=== PATIENT | male | born 1970 | race Caucasian/White ===

== ENCOUNTER → 2016-09-21 | Outpatient (CLI) | payer MEDICARE, OTHER ==
[~2016-09-21] MED LIST: COUM3TAB PO; ECOT81TA2 PO; FENO54TA PO; HYDR-3129 PO; IOHEXOL 350 MG/ML 10 ML VIAL (for RAD DIAG) IV ONE; LOVA1TAB47 PO; PRIN10TA PO; SERT-129 PO; VENTAER INH
--- NOTE | 2016-09-21 15:31 | RADRPT ---
EXAM DATE/TIME: 09/21/2016 14:48 [facility] COMPARISON: CTA BRAIN W 3D RECON, September 28, 2014, 22:32. CTA CAROTID ARTERIES W 3D RECON, September 28, 2014, 22:32. INDICATIONS : Thrombosis. IV CONTRAST: 75 cc Omnipaque 350 (iohexol) IV RADIATION DOSE: 26.25 CTDIvol (mGy) MEDICAL HISTORY : Cardiovascular disease. Hypertension. SURGICAL HISTORY : Tonsillectomy. CABGTympanostomy. ENCOUNTER: Initial ACUITY: 1 week PAIN SCALE: 0/10 LOCATION: cranial TECHNIQUE: Volumetric scanning was performed using a multirow detector CT scanner. The data was post processed with a variety of visualization algorithms including full-volume maximum intensity projection, multip lanar sliding thin-slab reformation, curved-planar reformation, and surface-rendering techniques. Us ing automated exposure control and adjustment of the mA and/or kV according to patient size, radiatio n dose was kept as low as reasonably achievable to obtain optimal diagnostic quality images. FINDINGS: No abnormality is identified within the lung apices. There is normal origin of vessels from the arch without evidence of proximal stenosis. The left vertebral artery is dominant. There are patent travel med surg rn ior communicating arteries bilaterally. Examination of the right common carotid artery demonstrates the vessel to be widely patent. There is 0-10% stenosis More distally the cervical internal carotid artery is intact. Examination of the left common carotid artery demonstrates the vessel to be widely patent. There is 0 -10% stenosis More distally the cervical internal carotid artery is intact. There is an aneurysm involving the first temporal branch arising from the middle cerebral right side measuring [address] angiography of the brain is recommended to further evaluate this as well as evalua te for other aneurysms. Percent stenosis is calculated using the diameter of the stenotic region over the diameter of the nor mal distal internal carotid artery. CONCLUSION: 1. No evidence of carotid stenosis. 2. 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 Bolus infused CT angiography of the brain is recommended for further evaluation. Randell Harvey MD Board Certified Radiologist. This report was verified electronically.
== END ==
LOC: HRAD 13:51
PROVIDERS: ATTEND Family Medicine
DX: Q28.3 Other malformations of cerebral vessels (principal)
CPT/HCPCS: 70498; Q9967

== ENCOUNTER 2017-07-16 18:25 | Inpatient (IN) | payer MEDICARE, OTHER ==
[~2017-07-16] VITALS: Ht 162.6 cm; Wt 75.9 kg
[~2017-07-16 18:25] MED LIST changes: -IOHEXOL 350 MG/ML 10 ML VIAL (for RAD DIAG) IV ONE
[2017-07-16 18:32] VITALS: BP 115/77; PULSE 77; RESP 16; O2SAT 94
[2017-07-16 18:40] VITALS: TEMP 97.7
[2017-07-16] MEDS ORDERED: SODIUM CHLOR 0.9% 1000 ML INJ 1,000 ML IV SCH (19:04)
[2017-07-16] MEDS ORDERED: PANTOPRAZOLE INJ 80 MG in SODIUM CHLORIDE 0.9% INJ 35 ML IV ONE ×2 (19:04→22:05)
--- NOTE | 2017-07-16 19:09 | PD ---
HPI Chief Complaint: GI Complaint Time Seen by Provider: 19:04 Travel History International Travel<30 days: No Contact w/Intl Traveler<30days: No Traveled to known affect area: No History of Present Illness HPI The patient is a 46-year-old male who presents to the emergency department via EMS from the half-way for coffee-ground emesis. According to EMS the patient's coffee-ground emesis starting yesterday, the patient states he started vomiting earlier today. The patient describes the vomitus dark, black, with occasional tinges of blood. The patient does have a history of coughing up blood in the past secondary to a pulmonary embolism, but is unsure if he has any history of upper GI bleed. The patient does currently taking Xarelto and aspirin for a history of CAD and previous pulmonary embolism. The patient denies any dark colored stools. The patient currently resides in a half-way secondary to history of CVA and is weak on the right side of the body as well as the left lower extremity. The patient denies any chest pain, shortness of breath, but does complain of hiccups and mild nausea. He denies any abdominal pain or significant distention. Symptoms are moderate, there are no current alleviating or exacerbating factors. PFSH Past Medical History Hx Anticoagulant Therapy: Yes (XARLETO) Arthritis: Yes (ANKLES, HIP) Asthma: Yes (Uses inhaler) Autoimmune Disease: No Anxiety: Yes Depression: Yes Heart Rhythm Problems: Yes (Heart attack in 2007) Cancer: No Cardiovascular Problems: Yes (CHF) High Cholesterol: Yes (TAKING LIPITOR) Chemotherapy: No Chest Pain: Yes Congestive Heart Failure: Yes COPD: No Cerebrovascular Accident: Yes Coronary Artery Disease: Yes Diabetes: No Diminished Hearing: Yes Endocrine: No Gastrointestinal Disorders: Yes (history of nausea and vomiting) GERD: Yes Genitourinary: No Headaches: Yes (Headache twice a week) Hepatitis: No Hiatal Hernia: Yes Hypertension: Yes Immune Disorder: No Implanted Vascular Access Dvce: Yes Kidney Stones: No Musculoskeletal: No Neurologic: Yes (Hx of TIA's) Psychiatric: Yes Reproductive: No Respiratory: Yes Immunizations Current: Yes Migraines: No Myocardial Infarction: Yes (APR 2008) Radiation Therapy: No Renal Failure: No Seizures: No Sickle Cell Disease: No Sleep Apnea: No Thyroid Disease: No Ulcer: No ?: Not Past Surgical History Abdominal Surgery: No AICD: Yes Appendectomy: Yes Arteriovenous Shunt: No Cardiac Surgery: Yes (CABG X 3 IN 2007, AICD PLACEMENT IN AUG 2008) Coronary Artery Bypass Graft: Yes (TRIPLE 04/26) Ear Surgery: Yes (tubes placed bilaterally when a child) Eye Surgery: No Genitourinary Surgery: No Insulin Pump: No Joint Replacement: Yes (LEFT HIP REPLACEMENT) Neurologic Surgery: No Oral Surgery: No Pacemaker: Yes ([facility]) Thoracic Surgery: Yes Tonsillectomy: Yes Tympanostomy Tube: Yes Other Surgery: Yes (TONSILLECTOMY) Social History Alcohol Use: No Tobacco Use: No Substance Use: No Allergies-Medications (Allergen,Severity, Reaction): Coded Allergies: No Known Allergies (Unverified , 10/01/15) Reported Meds & Prescriptions Reported Meds & Active Scripts Active Reported Zoloft (Sertraline HCl) 50 Mg Tab 75 Mg PO DAILY BRAND MEDICALLY NECESSARY Xarelto (Rivaroxaban) 20 Mg Tab 20 Mg PO DAILY Tylenol-Codeine #3 (Acetaminophen-Codeine) 300-30 mg Tab 1 Tab PO TID Tums (Calcium Carbonate (Antacid)) 500 Mg Chew 500 Mg CHEW TID PRN Milk of Magnesia Liq (Magnesium Hydroxide) 400 Mg/5 Ml Susp 30 Ml PO DAILY PRN Metamucil Powder (Psyllium Seed (with Sugar)) 575 Gm Powder 1 Pkt PO DAILY PRN Melatonin 3 Mg Tab 3 Mg PO HS Meclizine (Meclizine HCl) 25 Mg Tab 25 Mg PO TID PRN Lisinopril 10 Mg Tab 10 Mg PO DAILY Lipitor (Atorvastatin Calcium) 40 Mg Tab 40 Mg PO HS Neurontin (Gabapentin) 100 Mg Cap 100 Mg PO BID PRN Fenofibrate 54 Mg Tab 54 Mg PO DAILY Biofreeze Topical (Menthol Topical) 4 % Gel 1 Applic TOPICAL Q12HR PRN Apply to affected shoulders Ativan (Lorazepam) 0.5 Mg Tab 0.5 Mg PO BID Ecotrin Low Strength (Aspirin) 81 Mg Tabdr 81 Mg PO DAILY Review of Systems Except as stated in HPI: all other systems reviewed are Neg General / Constitutional: No: Fever HENT: No: Lightheadedness Cardiovascular: No: Chest Pain or Discomfort Respiratory: No: Shortness of Breath Gastrointestinal: Positive: Nausea, Vomiting, Hematemesis, No: Abdominal Pain, Hematochezia, Changes in Bowel Habits Neurologic: Positive: Weakness (weakness and right sided body secondary to previous CVA) Physical Exam Narrative GENERAL: Awake, alert, pleasant 46-year-old male who appears his stated age and is in no acute respiratory distress. SKIN: Focused skin assessment warm/dry. HEAD: Atraumatic. Normocephalic. EYES: Pupils equal and round. No scleral icterus. No injection or drainage. Mild lower leg on the right. ENT: No nasal bleeding or discharge. Mucous membranes pink and moist. Slightly asymmetric right nasolabial fold. NECK: Trachea midline. No JVD. CARDIOVASCULAR: Regular rate and rhythm. No murmur appreciated. Heart rate in the 80s. Well-healed sternal scar. RESPIRATORY: No accessory muscle use. Clear to auscultation. Breath sounds equal bilaterally. GASTROINTESTINAL: Abdomen soft, minimal distention, no rebound tender, guarding , rigidity. Back: Superficial stage I decubitus ulcer. Rectal exam reveals no gross blood. Guaiac negative. MUSCULOSKELETAL: Mild atrophy of the right upper extremity and right lower extremity. Limited range of motion of the right lower extremity and right upper extremity. NEUROLOGICAL: Awake and alert. Slightly asymmetric smile on the right. Limited range of motion of the right lower extremity and right upper extremity. PSYCHIATRIC: Appropriate mood and affect; insight and judgment normal. Data Data Last Documented VS Vital Signs Date Time Temp Pulse Resp B/P (MAP) Pulse Ox O2 Delivery O2 Flow Rate FiO2 07/16/17 18:40 97.7 07/16/17 18:32 77 16 115/77 (90) 94 Orders Orders Complete Blood Count With Diff (07/16/17 19:04) Comprehensive Metabolic Panel (07/16/17 19:04) Lipase (07/16/17 19:04) Prothrombin Time / Inr (Pt) (07/16/17 19:04) Act Partial Throm Time (Ptt) (07/16/17 19:04) Urinalysis - C+S If Indicated (07/16/17 19:04) Type And Screen (07/16/17 19:04) Chest, Single Ap (07/16/17 19:04) Ecg Monitoring (07/16/17 19:04) Iv Access Insert/Monitor (07/16/17 19:04) Oximetry (07/16/17 19:04) Ondansetron Inj (Zofran Inj) (07/16/17 19:15) Sodium Chlor 0.9% 1000 Ml Inj (Ns 1000 M (07/16/17 19:04) Sodium Chloride 0.9% Flush (Ns Flush) (07/16/17 19:15) Sodium Chloride 0.9... W/Pantoprazole In (07/16/17 19:04) Sodium Chloride 0.9... W/Pantoprazole In (07/16/17 19:04) Ng Gastric Tube Insert/Monitor (07/16/17 19:06) Admit Order (Ed Use Only) (07/16/17 ) Vital Signs (Adult) Q4H (07/16/17 21:01) Diet Npo (07/17/17 Breakfast) Activity Bed Rest (07/16/17 21:01) Labs Laboratory Tests Test 07/16/17 19:14 White Blood Count 8.6 TH/MM3 Red Blood Count 4.51 MIL/MM3 Hemoglobin 13.8 GM/DL Hematocrit 41.0 % Mean Corpuscular Volume 90.8 FL Mean Corpuscular Hemoglobin 30.5 PG Mean Corpuscular Hemoglobin Concent 33.6 % Red Cell Distribution Width 14.4 % Platelet Count 232 TH/MM3 Mean Platelet Volume 9.0 FL Neutrophils (%) (Auto) 68.2 % Lymphocytes (%) (Auto) 18.7 % Monocytes (%) (Auto) 7.6 % Eosinophils (%) (Auto) 4.8 % Basophils (%) (Auto) 0.7 % Neutrophils # (Auto) 5.8 TH/MM3 Lymphocytes # (Auto) 1.6 TH/MM3 Monocytes # (Auto) 0.7 TH/MM3 Eosinophils # (Auto) 0.4 TH/MM3 Basophils # (Auto) 0.1 TH/MM3 CBC Comment DIFF FINAL Differential Comment Prothrombin Time 13.6 SEC Prothromb Time International Ratio 1.2 RATIO Activated Partial Thromboplast Time 30.8 SEC Blood Urea Nitrogen 15 MG/DL Creatinine 1.31 MG/DL Random Glucose 91 MG/DL Total Protein 7.7 GM/DL Albumin 3.5 GM/DL Calcium Level 8.5 MG/DL Alkaline Phosphatase 53 U/L Aspartate Amino Transf (AST/SGOT) 37 U/L Alanine Aminotransferase (ALT/SGPT) 20 U/L Total Bilirubin 0.5 MG/DL Sodium Level 138 MEQ/L Potassium Level 4.9 MEQ/L Chloride Level 107 MEQ/L Carbon Dioxide Level 25.1 MEQ/L Anion Gap 6 MEQ/L Estimat Glomerular Filtration Rate 59 ML/MIN Lipase 69 U/L [facility] Medical Decision Making Medical Screen Exam Complete: Yes Emergency Medical Condition: Yes Medical Record Reviewed: Yes Interpretation(s) Laboratory Tests Test 07/16/17 19:14 White Blood Count 8.6 TH/MM3 Red Blood Count 4.51 MIL/MM3 Hemoglobin 13.8 GM/DL Hematocrit 41.0 % Mean Corpuscular Volume 90.8 FL Mean Corpuscular Hemoglobin 30.5 PG Mean Corpuscular Hemoglobin Concent 33.6 % Red Cell Distribution Width 14.4 % Platelet Count 232 TH/MM3 Mean Platelet Volume 9.0 FL Neutrophils (%) (Auto) 68.2 % Lymphocytes (%) (Auto) 18.7 % Monocytes (%) (Auto) 7.6 % Eosinophils (%) (Auto) 4.8 % Basophils (%) (Auto) 0.7 % Neutrophils # (Auto) 5.8 TH/MM3 Lymphocytes # (Auto) 1.6 TH/MM3 Monocytes # (Auto) 0.7 TH/MM3 Eosinophils # (Auto) 0.4 TH/MM3 Basophils # (Auto) 0.1 TH/MM3 CBC Comment DIFF FINAL Differential Comment Prothrombin Time 13.6 SEC Prothromb Time International Ratio 1.2 RATIO Activated Partial Thromboplast Time 30.8 SEC Blood Urea Nitrogen 15 MG/DL Creatinine 1.31 MG/DL Random Glucose 91 MG/DL Total Protein 7.7 GM/DL Albumin 3.5 GM/DL Calcium Level 8.5 MG/DL Alkaline Phosphatase 53 U/L Aspartate Amino Transf (AST/SGOT) 37 U/L Alanine Aminotransferase (ALT/SGPT) 20 U/L Total Bilirubin 0.5 MG/DL Sodium Level 138 MEQ/L Potassium Level 4.9 MEQ/L Chloride Level 107 MEQ/L Carbon Dioxide Level 25.1 MEQ/L Anion Gap 6 MEQ/L Estimat Glomerular Filtration Rate 59 ML/MIN Lipase 69 U/L Differential Diagnosis Differential diagnosis includes upper GI bleed, peptic ulcer disease, gastritis , medication side effect, anemia, coagulopathy. Narrative Course IV was established, labs are drawn and sent, and the patient was placed on cardiac telemetry monitoring and continuous pulse oximetry monitoring. Chest x- ray was obtained. NG tube was placed. The patient was administered Protonix bolus and placed on Protonix drip. The patient's NG tube had 300 cc of initially coffee-ground emesis, the last 50 cc appear to be brighter colored blood when evaluated at 8:15 PM and then 8:42 PM respectively. The patient's hemoglobin is stable, the patient is not tachycardic, but may benefit from Protonix and GI evaluation for possible endoscopy. The patient is currently anticoagulated with Xarelto. The patient's physician of record at the half-way is Dr. Cierra Wilson, therefore, [facility] were paged for admission. Physician Communication Physician Communication [facility] were paged for admission. I discussed the patient with Dr. Barney who agrees with admission. Diagnosis Primary Impression: Upper GI bleed Admitting Information Admitting Physician Requests: Admit Condition: Stable Jalen Anderson MD Jul 16, 2017 19:09
[2017-07-16] MEDS ORDERED: ONDANSETRON HCL 4 MG/2 ML VIAL IVP ONE (19:15)
[2017-07-16] MEDS ORDERED: SODIUM CHLORIDE 0.9% FLUSH 10 ML FLUSH IVF PRN (19:15)
[2017-07-16] MEDS ORDERED: TUMS500C CHEW (19:21)
[2017-07-16] MEDS ORDERED: TYLETAB34 PO (19:21)
[2017-07-16] MEDS ORDERED: ZOLO50TA PO (19:21)
[2017-07-16] MEDS ORDERED: LISI10TA3 PO (19:21)
[2017-07-16] MEDS ORDERED: FENO54TA PO (19:21)
[2017-07-16] MEDS ORDERED: LORA-392 PO (19:21)
[2017-07-16] MEDS ORDERED: MELA3TAB52 PO (19:21)
[2017-07-16] MEDS ORDERED: XARE20TA PO (19:21)
[2017-07-16] MEDS ORDERED: MECL-62 PO (19:21)
[2017-07-16] MEDS ORDERED: MILKSUS PO (19:21)
[2017-07-16] MEDS ORDERED: NEUR100C PO (19:21)
[2017-07-16] MEDS ORDERED: MENT4GEL2 TOPICAL (19:21)
[2017-07-16] MEDS ORDERED: ASPI-147 PO (19:21)
[2017-07-16] MEDS ORDERED: PSYL575P2 PO (19:21)
[2017-07-16] MEDS ORDERED: LIPI40TA PO (19:21)
--- NOTE | 2017-07-16 19:50 | RADRPT ---
EXAM DATE/TIME: 07/16/2017 19:23 [facility] COMPARISON: CHEST SINGLE AP, October 01, 2015, 20:20. INDICATIONS : Nausea, vomiting. MEDICAL HISTORY : Hypertension. Myocardial infarction. SURGICAL HISTORY : CABG. Pacemaker. ENCOUNTER: Initial ACUITY: 2 days PAIN SCORE: 0/10 LOCATION: Bilateral chest FINDINGS: A single view of the chest demonstrates the lungs to be symmetrically aerated without evidence of mas s, infiltrate or effusion. Status post median sternotomy. Left-sided pacemaker/defibrillator with 2 intact leads. The cardiomediastinal contours are unremarkable. Osseous structures are intact. CONCLUSION: No acute disease. Dhiraj Castillo MD on July 16, 2017 at 19:48 Board Certified Radiologist. This report was verified electronically.
[2017-07-16 20:04] LABS: AUTOMATED NEUTROPHIL # 5.8 TH/MM3 (1.8-7.7); BASOPHIL # 0.1 TH/MM3 (0-0.2); BASOPHIL % 0.7 % (0.0-2.0); EOSINOPHIL # 0.4 TH/MM3 (0-0.4); EOSINOPHIL % 4.8 % (0.0-4.0); HEMO FLAGS DIFF FINAL; LYMPH % 18.7 % (9.0-44.0); LYMPHOCYTE # 1.6 TH/MM3 (1.0-4.8); MEAN CELL VOLUME 90.8 FL (80.0-100.0); MEAN CORPUSCULAR HEMOGLOBIN 30.5 PG (27.0-34.0); MEAN CORPUSCULAR HGB CONC 33.6 % (32.0-36.0); MONO % 7.6 % (0.0-8.0); NEUT % 68.2 % (16.0-70.0); PLATELET COUNT 232 TH/MM3 (150-450); RED BLOOD COUNT 4.51 MIL/MM3 (4.50-5.90); RED CELL DISTRIBUTION WIDTH 14.4 % (11.6-17.2); WHITE BLOOD COUNT 8.6 TH/MM3 (4.0-11.0)
[2017-07-16 20:17] LABS: APTT (PATIENT) 30.8 SEC (24.3-30.1); INTERNATIONAL NORMALIZED RATIO 1.2 RATIO; PROTHROMBIN TIME - PATIENT 13.6 SEC (9.8-11.6)
[2017-07-16 20:31] LABS: ALKALINE PHOSPHATASE 53 U/L (45-117); ALT (GPT) 20 U/L (12-78); ANION GAP 6 MEQ/L (5-15); AST (GOT) 37 U/L (15-37); BICARBONATE 25.1 MEQ/L (21.0-32.0); BLOOD UREA NITROGEN 15 MG/DL (7-18); CHLORIDE 107 MEQ/L (98-107); GLOMERULAR FILTRATION RATE 59 ML/MIN (>89); SODIUM (NA) 138 MEQ/L (136-145); TOTAL BILIRUBIN ADULT 0.5 MG/DL (0.2-1.0)
[2017-07-16 20:32] LABS: POTASSIUM 4.9 MEQ/L (3.5-5.1)
[2017-07-16] MEDS: PANTOPRAZOLE INJ 80 MG in SODIUM CHLORIDE 0.9% INJ 100 ML IV SCH (20:54)
[2017-07-16] MEDS ORDERED: GABAPENTIN 100 MG CAP PO PRN (21:15)
[2017-07-16] MEDS ORDERED: LORazepam 0.5 MG TAB PO PRN (21:15)
[2017-07-16] MEDS ORDERED: SODIUM CHLORIDE 0.9% FLUSH 10 ML FLUSH IV FLUSH PRN (21:15)
[2017-07-16] MEDS ORDERED: ONDANSETRON HCL 4 MG/2 ML VIAL IV PUSH PRN (21:15)
[2017-07-16] MEDS: MELATONIN 5 MG TAB PO SCH (21:15)
[2017-07-16 23:09] VITALS: BP 107/68; PULSE 68; RESP 18; TEMP 100.1; O2SAT 95
--- NOTE | 2017-07-16 23:21 | HHI.HP ---
[facility] Unknown Admission Diagnosis upper GI bleed on Xarelto Diagnoses: Travel History International Travel<30 Days: No Contact w/Intl Traveler <30 Da: No Traveled to Known Affected Are: No History of Present Illness 46-year-old male with a past medical history significant for CVA, CAD, hypertension, PE on chronic anticoagulation with Xarelto was brought to the emergency department via EMS from his correction for coffee-ground emesis. The patient reports he started vomiting yesterday and the vomiting continued through today. He endorses coffee-ground emesis. He denies any abdominal pain or diarrhea associated with his symptoms. He denies any dark colored stools. An NG tube was placed in the emergency department which initially was positive for 300 cc of coffee-ground emesis, which transitioned to bright red blood. H& H 13.8/41.0. Laboratory values significant for creatinine of 1.31 (baseline). Vital signs: Pulse 77, respiratory rate 16, BP 115/77, pulse ox 94% on room air. Review of Systems Denies fever or chills Denies blurry vision, otorrhea, rhinorrhea Denies sore throat and cough No chest pain, palpitations, shortness of breath No abdominal pain Positive nausea/emesis Denies muscle pain/weakness No rashes Past Family Social History Past Medical History History of CVA with right-sided residual weakness CAD History of PE, anticoagulation on Xarelto Hypertension Hyperlipidemia Past Surgical History CABG 3 at the age of 37 Pacemaker placement Left hip surgery Left ankle surgery Tonsillectomy Reported Medications Reported Meds & Active Scripts Active Reported Zoloft (Sertraline HCl) 50 Mg Tab 75 Mg PO DAILY BRAND MEDICALLY NECESSARY Xarelto (Rivaroxaban) 20 Mg Tab 20 Mg PO DAILY Tylenol-Codeine #3 (Acetaminophen-Codeine) 300-30 mg Tab 1 Tab PO TID Tums (Calcium Carbonate (Antacid)) 500 Mg Chew 500 Mg CHEW TID PRN Milk of Magnesia Liq (Magnesium Hydroxide) 400 Mg/5 Ml Susp 30 Ml PO DAILY PRN Metamucil Powder (Psyllium Seed (with Sugar)) 575 Gm Powder 1 Pkt PO DAILY PRN Melatonin 3 Mg Tab 3 Mg PO HS Meclizine (Meclizine HCl) 25 Mg Tab 25 Mg PO TID PRN Lisinopril 10 Mg Tab 10 Mg PO DAILY Lipitor (Atorvastatin Calcium) 40 Mg Tab 40 Mg PO HS Neurontin (Gabapentin) 100 Mg Cap 100 Mg PO BID PRN Fenofibrate 54 Mg Tab 54 Mg PO DAILY Biofreeze Topical (Menthol Topical) 4 % Gel 1 Applic TOPICAL Q12HR PRN Apply to affected shoulders Ativan (Lorazepam) 0.5 Mg Tab 0.5 Mg PO BID Ecotrin Low Strength (Aspirin) 81 Mg Tabdr 81 Mg PO DAILY Allergies: Coded Allergies: No Known Allergies (Unverified Allergy, Unknown, 07/16/17) Family History Father of [place] at age 48. Mom with CAD Social History Remote history of smoking. Denies alcohol, illicit drugs Physical Exam Vital Signs Vital Signs Date Time Temp Pulse Resp B/P (MAP) Pulse Ox O2 Delivery O2 Flow Rate FiO2 07/16/17 18:40 97.7 07/16/17 18:32 77 16 115/77 (90) 94 Physical Exam GENERAL: male sitting up in bed SKIN: No rashes, ecchymoses or lesions. Cool and dry. HEAD: Atraumatic. Normocephalic. No temporal or scalp tenderness. EYES: Pupils equal round and reactive. Extraocular motions intact. No scleral icterus. No injection or drainage. ENT: Nose without bleeding, purulent drainage or septal hematoma. Throat without erythema, tonsillar hypertrophy or exudate. Uvula midline. Airway patent. NG tube in place draining jason blood. NECK: Trachea midline. No JVD or lymphadenopathy. Supple, nontender, no meningeal signs. CARDIOVASCULAR: Regular rate and rhythm without murmurs, gallops, or rubs. RESPIRATORY: Clear to auscultation. Breath sounds equal bilaterally. No wheezes , rales, or rhonchi. GASTROINTESTINAL: Abdomen soft, non-tender, nondistended. No hepato-splenomegaly , or palpable masses. No guarding. MUSCULOSKELETAL: Extremities without clubbing, cyanosis, or edema. No joint tenderness, effusion, or edema noted. No calf tenderness. Negative Homans sign bilaterally. NEUROLOGICAL: Awake and alert. Cranial nerves II through XII intact. Mild slurring of speech. RUE/RLE strength 3/5. Limited ROM RLE/RUE. Laboratory Laboratory Tests Test 07/16/17 19:14 White Blood Count 8.6 Red Blood Count 4.51 Hemoglobin 13.8 Hematocrit 41.0 Mean Corpuscular Volume 90.8 Mean Corpuscular Hemoglobin 30.5 Mean Corpuscular Hemoglobin Concent 33.6 Red Cell Distribution Width 14.4 Platelet Count 232 Mean Platelet Volume 9.0 Neutrophils (%) (Auto) 68.2 Lymphocytes (%) (Auto) 18.7 Monocytes (%) (Auto) 7.6 Eosinophils (%) (Auto) 4.8 Basophils (%) (Auto) 0.7 Neutrophils # (Auto) 5.8 Lymphocytes # (Auto) 1.6 Monocytes # (Auto) 0.7 Eosinophils # (Auto) 0.4 Basophils # (Auto) 0.1 CBC Comment DIFF FINAL Differential Comment Prothrombin Time 13.6 Prothromb Time International Ratio 1.2 Activated Partial Thromboplast Time 30.8 Blood Urea Nitrogen 15 Creatinine 1.31 Random Glucose 91 Total Protein 7.7 Albumin 3.5 Calcium Level 8.5 Alkaline Phosphatase 53 Aspartate Amino Transf (AST/SGOT) 37 Alanine Aminotransferase (ALT/SGPT) 20 Total Bilirubin 0.5 Sodium Level 138 Potassium Level 4.9 Chloride Level 107 Carbon Dioxide Level 25.1 Anion Gap 6 Estimat Glomerular Filtration Rate 59 Lipase 69 Result Diagram: 07/16/17191307/16/171913 Caprini VTE Risk Assessment Caprini VTE Risk Assessment: Mod/High Risk (score >= 2) Caprini Risk Assessment Model Point Value = 1 Point Value = 2 Point Value = 3 Point Value = 5 Age 41-60 Minor surgery BMI > 25 kg/m2 Swollen legs Varicose veins or History of unexplained or recurrent spontaneous Oral contraceptives or hormone replacement Sepsis (< 1 month) Serious lung disease, including pneumonia (< 1 month) Abnormal pulmonary function Acute myocardial infarction Congestive heart failure (< 1 month) History of inflammatory bowel disease Medical patient at bed rest Age 61-74 Arthroscopic surgery Major open surgery (> 45 min) Laparoscopic surgery (> 45 min) Malignancy Confined to bed (> 72 hours) Immobilizing plaster cast Central venous access Age >= 75 History of VTE Family history of VTE Factor V Leiden Prothrombin [id number] Lupus anticoagulant Anticardiolipin antibodies Elevated serum homocysteine Heparin-induced thrombocytopenia Other congenital or acquired thrombophilia Stroke (< 1 month) Elective arthroplasty Hip, pelvis, or leg fracture Acute spinal cord injury (< 1 month) Prophylaxis Regimen Total Risk Factor Score Risk Level Prophylaxis Regimen 0-1 Low Early ambulation 2 Moderate Order ONE of the following: *Sequential Compression Device (SCD) *Heparin 5000 units SQ BID 3-4 Higher Order ONE of the following medications: *Heparin 5000 units SQ TID *Enoxaparin/Lovenox 40 mg SQ daily (WT < 150 kg, CrCl > 30 mL/min) *Enoxaparin/Lovenox 30 mg SQ daily (WT < 150 kg, CrCl > 10-29 mL/min) *Enoxaparin/Lovenox 30 mg SQ BID (WT < 150 kg, CrCl > 30 mL/min) AND/OR *Sequential Compression Device (SCD) 5 or more Highest Order ONE of the following medications: *Heparin 5000 units SQ TID (Preferred with Epidurals) *Enoxaparin/Lovenox 40 mg SQ daily (WT < 150 kg, CrCl > 30 mL/min) *Enoxaparin/Lovenox 30 mg SQ daily (WT < 150 kg, CrCl > 10-29 mL/min) *Enoxaparin/Lovenox 30 mg SQ BID (WT < 150 kg, CrCl > 30 mL/min) AND *Sequential Compression Device (SCD) Assessment and Plan Assessment and Plan 46-year-old male with a past medical history significant for CVA, CAD, hypertension, hyperlipidemia and PE chronically anticoagulated on Xarelto presents with upper GI bleed. 1. Upper GI bleed Serial H&H Transfuse when necessary Nothing by mouth NG tube to [facility] Gastroenterology consulted, appreciate recommendations 2. History of PE, on chronic anticoagulation Holding Eliquis secondary to GI bleed 3. CAD/hypertension/hyperlipidemia Continue home medications 4. History of CVA Residual weakness baseline PT consult FEN NPO NS at 125 cc/hr Electrolytes: Replete when necessary Holding pharmacologic anticoagulation for active GI bleed Physician Certification 2 Midnight Certification Type: Admission for Inpatient Services Order for Inpatient Services The services are ordered in accordance with Medicare regulations or non- Medicare payer requirements, as applicable. In the case of services not specified as inpatient-only, they are appropriately provided as inpatient services in accordance with the 2-midnight benchmark. Estimated LOS (days): 2 2 days is the estimated time the patient will need to remain in the hospital, assuming treatment plan goals are met and no additional complications. Post-Hospital Plan: Not yet determined Isabell Barney MD Jul 16, 2017 23:21
[2017-07-16 23:24] LABS: BLOOD, URINE NEG (NEG); COMMENT (UR) CULT NOT INDICATED; CULTURE IF INDICATED CULT NOT INDICATED; GLUCOSE,URINE NEG (NEG); KETONE, URINE NEG (NEG); NITRITE,URINE NEG (NEG); URINE COLOR YELLOW (YELLW/STRAW)
[2017-07-16] MEDS: ATORVASTATIN 40 MG TAB PO SCH (23:51)
[2017-07-17] VITALS (8 sets, daily range): BP systolic 106–123; BP diastolic 70–85; PULSE 77–90; RESP 16–18; TEMP 96.9–98.7; O2SAT 94–96
[2017-07-17 01:41] LABS: HEMATOCRIT 39.3 % (39.0-51.0); REVIEW FLAG FINAL
[2017-07-17] MEDS: PANTOPRAZOLE INJ 80 MG in SODIUM CHLORIDE 0.9% INJ 100 ML IV SCH ×2 (05:57→17:33)
[2017-07-17 07:44] LABS: AUTOMATED NEUTROPHIL # 6.6 TH/MM3 (1.8-7.7); BASOPHIL # 0.1 TH/MM3 (0-0.2); BASOPHIL % 0.5 % (0.0-2.0); EOSINOPHIL # 0.4 TH/MM3 (0-0.4); EOSINOPHIL % 4.1 % (0.0-4.0); HEMO FLAGS DIFF FINAL; LYMPH % 19.7 % (9.0-44.0); LYMPHOCYTE # 1.9 TH/MM3 (1.0-4.8); MEAN CELL VOLUME 92.2 FL (80.0-100.0); MEAN CORPUSCULAR HEMOGLOBIN 30.6 PG (27.0-34.0); MEAN CORPUSCULAR HGB CONC 33.2 % (32.0-36.0); MONO % 7.8 % (0.0-8.0); NEUT % 67.9 % (16.0-70.0); PLATELET COUNT 193 TH/MM3 (150-450); RED BLOOD COUNT 4.23 MIL/MM3 (4.50-5.90); RED CELL DISTRIBUTION WIDTH 14.1 % (11.6-17.2); WHITE BLOOD COUNT 9.8 TH/MM3 (4.0-11.0)
[2017-07-17 08:04] LABS: ALT (GPT) 13 U/L (12-78); ANION GAP 8 MEQ/L (5-15); AST (GOT) 19 U/L (15-37); BICARBONATE 24.4 MEQ/L (21.0-32.0); BLOOD UREA NITROGEN 13 MG/DL (7-18); CHLORIDE 107 MEQ/L (98-107); GLOMERULAR FILTRATION RATE 56 ML/MIN (>89); POTASSIUM 4.3 MEQ/L (3.5-5.1); SODIUM (NA) 139 MEQ/L (136-145)
[2017-07-17 08:07] LABS: ALKALINE PHOSPHATASE 47 U/L (45-117); TOTAL BILIRUBIN ADULT 0.6 MG/DL (0.2-1.0)
--- NOTE | 2017-07-17 08:17 | PD.CONS ---
HPI History of Present Illness This is a 46 year old male who was sent from a local nursing facility for evaluation of coffee-ground emesis. He has a history of coronary artery disease and pulmonary embolism and is currently on Xarelto and aspirin. He reports that he began having nausea and vomiting with coffee ground emesis yesterday evening. There are no aggravating or alleviating factors. He denies any associated abdominal pain, heartburn, or reflux. He reports that he did have some loose stool about 2 days ago, but denies any melena or hematochezia and is no longer having this. He denies any known history of peptic ulcer disease. He does state that he may have coffee-ground emesis in the past when he was first diagnosed with his pulmonary embolism. He reports that he may have had an endoscopy at that time, but is unsure. I do not see any records from our office or this facility where he has had an upper endoscopy. He is currently resting in bed in no distress and has an NG tube to low intermittent wall suction. He reports that he has difficulty swallowing with the NG tube in and would like this removed. He states that he does not usually have any difficulty swallowing and this is related to the nasal gastric tube. (Betty Rodriguez) PFSH Past Medical History History of CVA with right-sided residual weakness CAD History of PE, anticoagulation on Xarelto Hypertension Hyperlipidemia Anxiety Asthma Expressive aphasia Heterozygous factor V Leiden mutation Ischemic cardiomyopathy History of intracardiac thrombus Past Surgical History CABG 3 at the age of 37 AICD placement ORIF left ankle fracture ORIF left hip fracture Tonsillectomy (Betty Rodriguez) Coded Allergies: No Known Allergies (Unverified Allergy, Unknown, 07/16/17) Medications Allergies Coded Allergies Type Severity Reaction Last Updated Verified No Known Allergies Allergy Unknown 07/16/17 No Active Scripts Medications Dose Route/Sig Max Daily Dose Days Date Category Dose Instructions Zoloft (Sertraline HCl) 50 Mg Tab 75 Mg PO DAILY 07/16/17 Reported BRAND MEDICALLY NECESSARY Xarelto (Rivaroxaban) 20 Mg Tab 20 Mg PO DAILY 07/16/17 Reported Tylenol-Codeine #3 (Acetaminophen-Codeine) 300-30 mg Tab 1 Tab PO TID 07/16/17 Reported Tums (Calcium Carbonate (Antacid)) 500 Mg Chew 500 Mg CHEW TID PRN 07/16/17 Reported Milk of Magnesia Liq (Magnesium Hydroxide) 400 Mg/5 Ml Susp 30 Ml PO DAILY PRN 07/16/17 Reported Metamucil Powder (Psyllium Seed (with Sugar)) 575 Gm Powder 1 Pkt PO DAILY PRN 07/16/17 Reported Melatonin 3 Mg Tab 3 Mg PO HS 07/16/17 Reported Meclizine (Meclizine HCl) 25 Mg Tab 25 Mg PO TID PRN 07/16/17 Reported Lisinopril 10 Mg Tab 10 Mg PO DAILY 07/16/17 Reported Lipitor (Atorvastatin Calcium) 40 Mg Tab 40 Mg PO HS 07/16/17 Reported Neurontin (Gabapentin) 100 Mg Cap 100 Mg PO BID PRN 07/16/17 Reported Fenofibrate 54 Mg Tab 54 Mg PO DAILY 07/16/17 Reported Biofreeze Topical (Menthol Topical) 4 % Gel 1 Applic TOPICAL Q12HR PRN 07/16/17 Reported Apply to affected shoulders Ativan (Lorazepam) 0.5 Mg Tab 0.5 Mg PO BID 07/16/17 Reported Ecotrin Low Strength (Aspirin) 81 Mg Tabdr 81 Mg PO DAILY 07/16/17 Reported Family History Father of [place] at age 48. Mom with CAD. Maternal uncle had colorectal cancer Social History Quit smoking 5 years ago, smoked 3 packs per day for 20 years prior to that. Former ETOH use, none currently Denies illicit drugs (Betty Rodriguez) Review of Systems Constitutional: COMPLAINS OF: Fatigue, DENIES: Fever, Chills, Change in appetite Respiratory: COMPLAINS OF: Cough, Sputum production, Shortness of breath Cardiovascular: DENIES: Chest pain Gastrointestinal: COMPLAINS OF: Diarrhea, Nausea, Vomiting, Hematemesis, DENIES : Abdominal pain, Black stools, Bloody stools, Constipation, Heartburn Musculoskeletal: COMPLAINS OF: Joint pain Integumentary: COMPLAINS OF: Abnormal pigmentation Neurologic: COMPLAINS OF: Localized weakness, DENIES: Headache Psychiatric: DENIES: Confusion (Betty Rodriguez) GI Exam Vitals I&O Vital Signs Date Time Temp Pulse Resp B/P (MAP) Pulse Ox O2 Delivery O2 Flow Rate FiO2 07/17/17 04:16 96.9 81 18 114/78 (90) 94 07/16/17 23:09 100.1 68 18 107/68 (81) 95 07/16/17 18:40 97.7 07/16/17 18:32 77 16 115/77 (90) 94 I/O 07/16/17 07/16/17 07/16/17 07/17/17 07/17/17 07/17/17 07:00 15:00 23:00 07:00 15:00 23:00 Intake Total 35 ml 1100 ml Output Total 400 ml 200 ml Balance -365 ml 900 ml Intake Oral 0 ml IV Total 35 ml 1100 ml Output Gastric Drainage Total 400 ml 200 ml # Voids 5 # Bowel Movements 0 Imaging Last Impressions Chest X-Ray 07/16/17 8454 Signed Impressions: Service Date/Time: Sunday, July 16, 2017 19:23 - CONCLUSION: No acute disease. Dhiraj Castillo MD Laboratory Test 07/16/17 19:14 07/16/17 22:50 07/17/17 01:09 07/17/17 06:52 White Blood Count 8.6 TH/MM3 9.8 TH/MM3 Red Blood Count 4.51 MIL/MM3 4.23 MIL/MM3 Hemoglobin 13.8 GM/DL 12.8 GM/DL 12.9 GM/DL Hematocrit 41.0 % 39.3 % 39.0 % Mean Corpuscular Volume 90.8 FL 92.2 FL Mean Corpuscular Hemoglobin 30.5 PG 30.6 PG Mean Corpuscular Hemoglobin Concent 33.6 % 33.2 % Red Cell Distribution Width 14.4 % 14.1 % Platelet Count 232 TH/MM3 193 TH/MM3 Mean Platelet Volume 9.0 FL 9.0 FL Neutrophils (%) (Auto) 68.2 % 67.9 % Lymphocytes (%) (Auto) 18.7 % 19.7 % Monocytes (%) (Auto) 7.6 % 7.8 % Eosinophils (%) (Auto) 4.8 % 4.1 % Basophils (%) (Auto) 0.7 % 0.5 % Neutrophils # (Auto) 5.8 TH/MM3 6.6 TH/MM3 Lymphocytes # (Auto) 1.6 TH/MM3 1.9 TH/MM3 Monocytes # (Auto) 0.7 TH/MM3 0.8 TH/MM3 Eosinophils # (Auto) 0.4 TH/MM3 0.4 TH/MM3 Basophils # (Auto) 0.1 TH/MM3 0.1 TH/MM3 CBC Comment DIFF FINAL DIFF FINAL Differential Comment Prothrombin Time 13.6 SEC Prothromb Time International Ratio 1.2 RATIO Activated Partial Thromboplast Time 30.8 SEC Blood Urea Nitrogen 15 MG/DL 13 MG/DL Creatinine 1.31 MG/DL 1.36 MG/DL Random Glucose 91 MG/DL 80 MG/DL Total Protein 7.7 GM/DL 7.0 GM/DL Albumin 3.5 GM/DL 3.4 GM/DL Calcium Level 8.5 MG/DL 8.2 MG/DL Alkaline Phosphatase 53 U/L 47 U/L Aspartate Amino Transf (AST/SGOT) 37 U/L 19 U/L Alanine Aminotransferase (ALT/SGPT) 20 U/L 13 U/L Total Bilirubin 0.5 MG/DL 0.6 MG/DL Sodium Level 138 MEQ/L 139 MEQ/L Potassium Level 4.9 MEQ/L 4.3 MEQ/L Chloride Level 107 MEQ/L 107 MEQ/L Carbon Dioxide Level 25.1 MEQ/L 24.4 MEQ/L Anion Gap 6 MEQ/L 8 MEQ/L Estimat Glomerular Filtration Rate 59 ML/MIN 56 ML/MIN Lipase 69 U/L Urine Color YELLOW Urine Turbidity HAZY Urine pH 8.0 Urine Specific [place] 1.018 Urine Protein NEG mg/dL Urine Glucose (UA) NEG mg/dL Urine Ketones NEG mg/dL Urine Occult Blood NEG Urine Nitrite NEG Urine Bilirubin NEG Urine Urobilinogen LESS THAN 2.0 MG/DL Urine Leukocyte Esterase NEG Urine RBC 3 /hpf Urine WBC 3 /hpf Microscopic Urinalysis Comment CULT NOT INDICATED Physical Examination HEENT: Normocephalic; atraumatic; no jaundice. CHEST: Resp. even/unlabored, diminished. Cough noted (nonproductive) CARDIAC: RRR ABDOMEN: Soft, nondistended, nontender; no hepatosplenomegaly; bowel sounds are present in all four quadrants. SKIN: RUE erythematous EVENT REPRESENTATIVE: Lethargic oriented times three. (Betty Rodriguez) Assessment and Plan Plan ASSESSMENT: - Upper GIB, Coffee ground emesis. Pt sent from local nursing facility for coffee ground emesis. Questionable hx of GIB (upper) in past, but I cannot find any records of this at this facility or in our outpatient records (Pt states it was here when he had his PE-2014). NGT to LIWS- clear romero brownish colored gastric secretions. No distress. HH stable. On Xarelto at long term, currently on hold. HH 12.9/39.0. - N/V, resolved. NGT to LIWS. - Anemia, mild. 12.9/39.9. - CARLOS. Creat 1.36. - Heterozygous factor V Leiden mutation with hx PE, on Xarelto at home. Anticoagulation currently on hold. - CAD, HTN, Hyperlipidemia, Asthma, Ischemic cardiomyopathy per attending. PLAN: - Plan for EGD tomorrow - Obtain consents - NPO after MN - Hold Xarelto - CLamp NGT - ST for swallow evaluation- clear liquids if passes - If no n/v x 4 hours after NGT clamped, okay to d/c - Protonix Gtt - Monitor HH - Transfuse as necessary - CBC, BMP in am - Supportive care - Further recommendations to follow based on results of above - Pt seen and examined by Dr. Reed and myself and this note is written on her behalf (Betty Rodriguez) Physician Comments seen, examined states last bm 3 days ago, feels full, bloated abdomen mildly distended-we will obtain abdominal x ray-if negative consider ct abdomen/pelvis Dulcolax supp tonight (Muna Reed MD) Betty Rodriguez Jul 17, 2017 08:17 Muna Reed MD Jul 17, 2017 19:12
[2017-07-17] MEDS: SODIUM CHLORIDE 0.9% FLUSH 10 ML FLUSH IV FLUSH SCH ×2 (09:00→21:19)
[2017-07-17] MEDS: FENOFIBRATE 48 MG TAB PO SCH (09:04)
[2017-07-17] MEDS: LISINOPRIL 10 MG TAB PO SCH (09:04)
[2017-07-17] MEDS: SERTRALINE HCL 50 MG TAB PO SCH (09:04)
[2017-07-17] MEDS: ACETAMINOPHEN/CODEINE 300 MG/30 MG TAB PO PRN ×2 (09:05→21:18)
--- NOTE | 2017-07-17 09:23 | HHI.PR ---
Subjective Remarks This is a pleasant 46 y/o Male with CVA, CAD, Hypertension, PE on chronic anticoagulation with Xarelto, brought in to ER with coffee-ground emesis. An NG tube was placed in the emergency department which initially was positive for 300 cc of coffee-ground emesis, which transitioned to bright red blood. H& H 13.8/41.0. Laboratory values significant for creatinine of 1.31 (baseline). Vital signs: Pulse 77, respiratory rate 16, BP 115/77, pulse ox 94% on room air. He has also Hypertension, Hyperlipidemia, PE on anticoagulation, 07/17: Status post GI specialist consult, he has Heterozygous factor V Leiden mutation with history of PE, recommended for EGD today, Xarelto on Hold, stable seen in his bedroom and awaiting for procedure to be performed. PT evaluation recommended already. No nausea, vomit or diarrhea. Objective Vital Signs Date Time Temp Pulse Resp B/P (MAP) Pulse Ox O2 Delivery O2 Flow Rate FiO2 07/17/17 04:16 96.9 81 18 114/78 (90) 94 07/16/17 23:09 100.1 68 18 107/68 (81) 95 07/16/17 18:40 97.7 07/16/17 18:32 77 16 115/77 (90) 94 I/O 07/16/17 07/16/17 07/16/17 07/17/17 07/17/17 07/17/17 07:00 15:00 23:00 07:00 15:00 23:00 Intake Total 35 ml 1100 ml Output Total 400 ml 200 ml Balance -365 ml 900 ml Intake Oral 0 ml IV Total 35 ml 1100 ml Output Gastric Drainage Total 400 ml 200 ml # Voids 5 # Bowel Movements 0 Result Diagram: 07/17/17 0652 07/17/17 0652 Imaging Last Impressions Chest X-Ray 07/16/17 1904 Signed Impressions: Service Date/Time: Sunday, July 16, 2017 19:23 - CONCLUSION: No acute disease. Dhiraj Castillo MD Procedures None Other Results Laboratory Tests Test 07/16/17 19:14 07/16/17 22:50 07/17/17 06:52 Prothrombin Time 13.6 SEC Prothromb Time International Ratio 1.2 RATIO Activated Partial Thromboplast Time 30.8 SEC Lipase 69 U/L Urine Color YELLOW Urine Turbidity HAZY Urine pH 8.0 Urine Specific [place] 1.018 Urine Protein NEG mg/dL Urine Glucose (UA) NEG mg/dL Urine Ketones NEG mg/dL Urine Occult Blood NEG Urine Nitrite NEG Urine Bilirubin NEG Urine Urobilinogen LESS THAN 2.0 MG/DL Urine Leukocyte Esterase NEG Urine RBC 3 /hpf Urine WBC 3 /hpf Microscopic Urinalysis Comment CULT NOT INDICATED White Blood Count 9.8 TH/MM3 Red Blood Count 4.23 MIL/MM3 Hemoglobin 12.9 GM/DL Hematocrit 39.0 % Mean Corpuscular Volume 92.2 FL Mean Corpuscular Hemoglobin 30.6 PG Mean Corpuscular Hemoglobin Concent 33.2 % Red Cell Distribution Width 14.1 % Platelet Count 193 TH/MM3 Mean Platelet Volume 9.0 FL Neutrophils (%) (Auto) 67.9 % Lymphocytes (%) (Auto) 19.7 % Monocytes (%) (Auto) 7.8 % Eosinophils (%) (Auto) 4.1 % Basophils (%) (Auto) 0.5 % Neutrophils # (Auto) 6.6 TH/MM3 Lymphocytes # (Auto) 1.9 TH/MM3 Monocytes # (Auto) 0.8 TH/MM3 Eosinophils # (Auto) 0.4 TH/MM3 Basophils # (Auto) 0.1 TH/MM3 CBC Comment DIFF FINAL Differential Comment Blood Urea Nitrogen 13 MG/DL Creatinine 1.36 MG/DL Random Glucose 80 MG/DL Total Protein 7.0 GM/DL Albumin 3.4 GM/DL Calcium Level 8.2 MG/DL Alkaline Phosphatase 47 U/L Aspartate Amino Transf (AST/SGOT) 19 U/L Alanine Aminotransferase (ALT/SGPT) 13 U/L Total Bilirubin 0.6 MG/DL Sodium Level 139 MEQ/L Potassium Level 4.3 MEQ/L Chloride Level 107 MEQ/L Carbon Dioxide Level 24.4 MEQ/L Anion Gap 8 MEQ/L Estimat Glomerular Filtration Rate 56 ML/MIN Objective Remarks GENERAL: male sitting up in bed SKIN: No rashes, ecchymoses or lesions. Cool and dry. HEAD: Atraumatic. Normocephalic. No temporal or scalp tenderness. EYES: Pupils equal round and reactive. Extraocular motions intact. No scleral icterus. No injection or drainage. ENT: Nose without bleeding, purulent drainage or septal hematoma. Throat without erythema, tonsillar hypertrophy or exudate. Uvula midline. Airway patent. NG tube in place draining jason blood. NECK: Trachea midline. No JVD or lymphadenopathy. Supple, nontender, no meningeal signs. CARDIOVASCULAR: Regular rate and rhythm without murmurs, gallops, or rubs. RESPIRATORY: Clear to auscultation. Breath sounds equal bilaterally. No wheezes , rales, or rhonchi. GASTROINTESTINAL: Abdomen soft, non-tender, nondistended. No hepato-splenomegaly , or palpable masses. No guarding. MUSCULOSKELETAL: Extremities without clubbing, cyanosis, or edema. No joint tenderness, effusion, or edema noted. No calf tenderness. Negative Homans sign bilaterally. NEUROLOGICAL: Awake and alert. Cranial nerves II through XII intact. Mild slurring of speech. RUE/RLE strength 3/5. Limited ROM RLE/RUE. Medications and IVs Current Medications Medications (Trade) Dose Ordered Sig/Kathleen Route Start Time Stop Time Status Last Admin Pantoprazole Sodium 80 mg/ Sodium Chloride 100 ml @ 10 mls/hr Q10H IV 07/16/17 19:04 07/17/17 05:57 (NS Flush) 2 ml UNSCH PRN IV FLUSH 07/16/17 21:15 (NS Flush) 2 ml BID IV FLUSH 07/17/17 09:00 (Zofran Inj) 4 mg Q6H PRN IV PUSH 07/16/17 21:15 07/17/17 05:21 (Lipitor) 40 mg HS PO 07/16/17 21:15 07/16/17 23:51 (Neurontin) 100 mg BID PRN PO 07/16/17 21:15 (Prinivil) 10 mg DAILY PO 07/17/17 09:00 07/17/17 09:04 (Zoloft) 75 mg DAILY PO 07/17/17 09:00 07/17/17 09:04 (Tricor) 48 mg DAILY PO 07/17/17 09:00 07/17/17 09:04 (Melatonin) 5 mg HS PO 07/16/17 21:15 (Ativan) 0.5 mg Q12HR PRN PO 07/16/17 21:15 (Tylenol-Codeine #3) 1 tab Q8HR PRN PO 07/16/17 21:15 07/17/17 09:05 A/P Assessment and Plan 46-year-old male with a past medical history significant for CVA, CAD, hypertension, hyperlipidemia and PE chronically anticoagulated on Xarelto presents with upper GI bleed. 1. Upper GI bleed, following Hemoglobin, Transfuse as necessary, NG tube to LIWS, GI specialist consulted, continue PIP he has Heterozygous factor V Leiden mutation with history of PE, recommended for EGD today, Xarelto on Hold. 2. History of PE, on chronic anticoagulation Holding Eliquis secondary to GI bleed 3. CAD/hypertension/hyperlipidemia Continue home medications 4. History of CVA Residual weakness baseline PT consult 5. Acute Kidney Injury to continue IV fluids and following Follow up in am tomorrow. Discharge Planning Expected in one to two days. Juve Comer MD Jul 17, 2017 09:23
[2017-07-17 16:21] LABS: HEMATOCRIT 40.5 % (39.0-51.0); REVIEW FLAG FINAL
[2017-07-17] MEDS ORDERED: BISACODYL 10 MG SUPP RECTAL ONE ×2 (19:15→20:30)
--- NOTE | 2017-07-17 20:31 | RADRPT ---
EXAM DATE/TIME: 07/17/2017 19:53 [facility] COMPARISON: No previous studies available for comparison. INDICATIONS : Patient complains of abdominal distention, nausea, and vomiting. MEDICAL HISTORY : None. SURGICAL HISTORY : None. ENCOUNTER: Initial ACUITY: 1 day PAIN SCORE: 2/10 LOCATION: Abdomen FINDINGS: Supine and upright views of the abdomen were performed. The abdominal bowel gas pattern is normal. No air fluid levels are seen. No abnormal masses, calcifications, or organomegaly is seen. The visu alized lower lungs are clear. No evidence of free intraperitoneal gas. Left medullary benjamin and compre ssion screw likely secures a previous left hip fracture. Median sternotomy wires and surgical clips o verlie the lower cardiac silhouette possibly worsening prior CABG. Pacer lead is also identified. CONCLUSION: Radiographically benign abdomen without evidence of obstruction or pneumoperitoneum. Matt Pruett MD on July 17, 2017 at 20:27 Board Certified Radiologist. This report was verified electronically.
[2017-07-17] MEDS: MELATONIN 5 MG TAB PO SCH (21:18)
[2017-07-17] MEDS: ATORVASTATIN 40 MG TAB PO SCH (21:19)
[2017-07-17 21:52] LABS: HEMATOCRIT 41.5 % (39.0-51.0); REVIEW FLAG FINAL
[2017-07-18] VITALS (8 sets, daily range): BP systolic 103–128; BP diastolic 59–91; PULSE 64–86; RESP 17–18; TEMP 96–98; O2SAT 94–99
[2017-07-18] MEDS: PANTOPRAZOLE INJ 80 MG in SODIUM CHLORIDE 0.9% INJ 100 ML IV SCH ×3 (06:06→21:09)
[2017-07-18 07:01] LABS: AUTOMATED NEUTROPHIL # 4.2 TH/MM3 (1.8-7.7); BASOPHIL % 0.6 % (0.0-2.0); EOSINOPHIL # 0.3 TH/MM3 (0-0.4); EOSINOPHIL % 4.8 % (0.0-4.0); HEMATOCRIT 39.5 % (39.0-51.0); HEMO FLAGS DIFF FINAL; LYMPHOCYTE # 1.9 TH/MM3 (1.0-4.8); MEAN CELL VOLUME 91.5 FL (80.0-100.0); MEAN CORPUSCULAR HGB CONC 32.8 % (32.0-36.0); MONO % 9.3 % (0.0-8.0); NEUT % 59.3 % (16.0-70.0); PLATELET COUNT 210 TH/MM3 (150-450); RED BLOOD COUNT 4.32 MIL/MM3 (4.50-5.90); RED CELL DISTRIBUTION WIDTH 14.4 % (11.6-17.2); WHITE BLOOD COUNT 7.1 TH/MM3 (4.0-11.0)
[2017-07-18 07:21] LABS: BICARBONATE 29.4 MEQ/L (21.0-32.0); POTASSIUM 3.8 MEQ/L (3.5-5.1)
[2017-07-18] MEDS: FENOFIBRATE 48 MG TAB PO SCH (09:00)
[2017-07-18] MEDS: LISINOPRIL 10 MG TAB PO SCH (09:00)
[2017-07-18] MEDS: SERTRALINE HCL 50 MG TAB PO SCH (09:00)
--- NOTE | 2017-07-18 09:10 | HHI.PR ---
Subjective Remarks This is a pleasant 46 y/o Male with CVA, CAD, Hypertension, PE on chronic anticoagulation with Xarelto, brought in to ER with coffee-ground emesis. An NG tube was placed in the emergency department which initially was positive for 300 cc of coffee-ground emesis, which transitioned to bright red blood. H& H 13.8/41.0. Laboratory values significant for creatinine of 1.31 (baseline). Vital signs: Pulse 77, respiratory rate 16, BP 115/77, pulse ox 94% on room air. He has also Hypertension, Hyperlipidemia, PE on anticoagulation, 07/17: Status post GI specialist consult, he has Heterozygous factor V Leiden mutation with history of PE, recommended for EGD, Xarelto on Hold, stable seen in his bedroom and awaiting for procedure to be performed. PT evaluation recommended already. 07/18: Seen in his bedroom stable, no nausea, vomit or diarrhea, laboratory stable, awaiting for final recommendations by GI specialist Hemoglobin 12.9. Objective Vital Signs Date Time Temp Pulse Resp B/P (MAP) Pulse Ox O2 Delivery O2 Flow Rate FiO2 07/18/17 08:00 97.6 71 17 111/67 (82) 96 07/18/17 04:00 96.7 64 18 103/69 (80) 94 07/18/17 00:00 96.0 72 18 103/59 (74) 94 07/17/17 23:47 77 07/17/17 20:00 98.7 82 18 115/71 (86) 96 07/17/17 19:17 90 07/17/17 17:09 83 07/17/17 15:31 97.9 79 16 106/79 (88) 95 07/17/17 12:00 98.6 80 17 106/70 (82) 95 I/O 07/17/17 07/17/17 07/17/17 07/18/17 07/18/17 07/18/17 07:00 15:00 23:00 07:00 15:00 23:00 Intake Total 1100 ml 860 ml 480 ml 0 ml Output Total 200 ml 200 ml Balance 900 ml 860 ml 280 ml 0 ml Intake Oral 0 ml 860 ml 480 ml 0 ml IV Total 1100 ml Output Urine Total 200 ml Gastric Drainage Total 200 ml # Voids 5 2 1 2 # Bowel Movements 0 1 0 1 Result Diagram: 07/18/17 0545 07/18/17 0546 Imaging Last Impressions Abdomen X-Ray 07/17/17 0000 Signed Impressions: Service Date/Time: Monday, July 17, 2017 19:53 - CONCLUSION: Radiographically benign abdomen without evidence of obstruction or pneumoperitoneum. Matt Pruett MD Chest X-Ray 07/16/17 1904 Signed Impressions: Service Date/Time: Sunday, July 16, 2017 19:23 - CONCLUSION: No acute disease. Dhiraj Castillo MD Procedures None Other Results Laboratory Tests Test 07/16/17 19:14 07/16/17 22:50 07/17/17 06:52 07/18/17 05:45 Prothrombin Time 13.6 SEC Prothromb Time International Ratio 1.2 RATIO Activated Partial Thromboplast Time 30.8 SEC Lipase 69 U/L Urine Color YELLOW Urine Turbidity HAZY Urine pH 8.0 Urine Specific [place] 1.018 Urine Protein NEG mg/dL Urine Glucose (UA) NEG mg/dL Urine Ketones NEG mg/dL Urine Occult Blood NEG Urine Nitrite NEG Urine Bilirubin NEG Urine Urobilinogen LESS THAN 2.0 MG/DL Urine Leukocyte Esterase NEG Urine RBC 3 /hpf Urine WBC 3 /hpf Microscopic Urinalysis Comment CULT NOT INDICATED Blood Urea Nitrogen 13 MG/DL Creatinine 1.36 MG/DL Random Glucose 80 MG/DL Total Protein 7.0 GM/DL Albumin 3.4 GM/DL Calcium Level 8.2 MG/DL Alkaline Phosphatase 47 U/L Aspartate Amino Transf (AST/SGOT) 19 U/L Alanine Aminotransferase (ALT/SGPT) 13 U/L Total Bilirubin 0.6 MG/DL Sodium Level 139 MEQ/L Potassium Level 4.3 MEQ/L Chloride Level 107 MEQ/L Carbon Dioxide Level 24.4 MEQ/L White Blood Count 7.1 TH/MM3 Red Blood Count 4.32 MIL/MM3 Hemoglobin 12.9 GM/DL Hematocrit 39.5 % Mean Corpuscular Volume 91.5 FL Mean Corpuscular Hemoglobin 30.0 PG Mean Corpuscular Hemoglobin Concent 32.8 % Red Cell Distribution Width 14.4 % Platelet Count 210 TH/MM3 Mean Platelet Volume 8.5 FL Neutrophils (%) (Auto) 59.3 % Lymphocytes (%) (Auto) 26.0 % Monocytes (%) (Auto) 9.3 % Eosinophils (%) (Auto) 4.8 % Basophils (%) (Auto) 0.6 % Neutrophils # (Auto) 4.2 TH/MM3 Lymphocytes # (Auto) 1.9 TH/MM3 Monocytes # (Auto) 0.7 TH/MM3 Eosinophils # (Auto) 0.3 TH/MM3 Basophils # (Auto) 0.0 TH/MM3 CBC Comment DIFF FINAL Differential Comment Test 07/18/17 05:46 Blood Urea Nitrogen 11 MG/DL Creatinine 1.35 MG/DL Random Glucose 102 MG/DL Calcium Level 8.8 MG/DL Sodium Level 140 MEQ/L Potassium Level 3.8 MEQ/L Chloride Level 103 MEQ/L Carbon Dioxide Level 29.4 MEQ/L Anion Gap 8 MEQ/L Estimat Glomerular Filtration Rate 57 ML/MIN Objective Remarks GENERAL: male sitting up in bed SKIN: No rashes, ecchymoses or lesions. Cool and dry. HEAD: Atraumatic. Normocephalic. No temporal or scalp tenderness. ENT: Nose without bleeding, purulent drainage or septal hematoma. NECK: Trachea midline. No JVD or lymphadenopathy. CARDIOVASCULAR: Regular rate and rhythm without murmurs, gallops, or rubs. RESPIRATORY: Clear to auscultation. Breath sounds equal bilaterally. No wheezes , rales, or rhonchi. GASTROINTESTINAL: Abdomen soft, non-tender, nondistended. No hepato-splenomegaly , or palpable masses. No guarding. MUSCULOSKELETAL: Extremities without clubbing, cyanosis, or edema. NEUROLOGICAL: Awake and alert. Cranial nerves II through XII intact. Mild slurring of speech. RUE/RLE strength 3/5. Limited ROM RLE/RUE. Medications and IVs Current Medications Medications (Trade) Dose Ordered Sig/Kathleen Route Start Time Stop Time Status Last Admin Pantoprazole Sodium 80 mg/ Sodium Chloride 100 ml @ 10 mls/hr Q10H IV 07/16/17 19:04 07/18/17 06:06 (NS Flush) 2 ml UNSCH PRN IV FLUSH 07/16/17 21:15 (NS Flush) 2 ml BID IV FLUSH 07/17/17 09:00 07/17/17 21:19 (Zofran Inj) 4 mg Q6H PRN IV PUSH 07/16/17 21:15 07/17/17 05:21 (Lipitor) 40 mg HS PO 07/16/17 21:15 07/17/17 21:19 (Neurontin) 100 mg BID PRN PO 07/16/17 21:15 (Prinivil) 10 mg DAILY PO 07/17/17 09:00 07/17/17 09:04 (Zoloft) 75 mg DAILY PO 07/17/17 09:00 07/17/17 09:04 (Tricor) 48 mg DAILY PO 07/17/17 09:00 07/17/17 09:04 (Melatonin) 5 mg HS PO 07/16/17 21:15 07/17/17 21:18 (Ativan) 0.5 mg Q12HR PRN PO 07/16/17 21:15 (Tylenol-Codeine #3) 1 tab Q8HR PRN PO 07/16/17 21:15 07/17/17 21:18 A/P Assessment and Plan 46-year-old male with a past medical history significant for CVA, CAD, hypertension, hyperlipidemia and PE chronically anticoagulated on Xarelto presents with upper GI bleed. 1. Upper GI bleed, following Hemoglobin, Transfuse as necessary, NG tube to [place], GI specialist consulted, continue PIP he has Heterozygous factor V Leiden mutation with history of PE, recommended for EGD later today. Xarelto on Hold. 2. History of PE, on chronic anticoagulation Holding Eliquis secondary to GI bleed 3. CAD/hypertension/hyperlipidemia Continue home medications 4. History of CVA Residual weakness baseline PT consult 5. Acute Kidney Injury to continue IV fluids and following creatinine continue in 1.35 Follow up in am tomorrow. Discharge Planning Expected in one to two days. Juve Comer MD Jul 18, 2017 09:10
[2017-07-18] MEDS: SODIUM CHLORIDE 0.9% FLUSH 10 ML FLUSH IV FLUSH SCH ×2 (10:06→21:03)
--- NOTE | 2017-07-18 11:12 | HHI.GIFU ---
Subjective Remarks resting in bed, No active bleeding or ABD PAIN Afebrile (Kathleen Faulkner) Objective Vitals I&O Vital Signs Date Time Temp Pulse Resp B/P (MAP) Pulse Ox O2 Delivery O2 Flow Rate FiO2 07/18/17 08:00 97.6 71 17 111/67 (82) 96 07/18/17 04:00 96.7 64 18 103/69 (80) 94 07/18/17 00:00 96.0 72 18 103/59 (74) 94 07/17/17 23:47 77 07/17/17 20:00 98.7 82 18 115/71 (86) 96 07/17/17 19:17 90 07/17/17 17:09 83 07/17/17 15:31 97.9 79 16 106/79 (88) 95 07/17/17 12:00 98.6 80 17 106/70 (82) 95 I/O 07/17/17 07/17/17 07/17/17 07/18/17 07/18/17 07/18/17 07:00 15:00 23:00 07:00 15:00 23:00 Intake Total 1100 ml 860 ml 480 ml 0 ml Output Total 200 ml 200 ml Balance 900 ml 860 ml 280 ml 0 ml Intake Oral 0 ml 860 ml 480 ml 0 ml IV Total 1100 ml Output Urine Total 200 ml Gastric Drainage Total 200 ml # Voids 5 2 1 2 # Bowel Movements 0 1 0 1 Laboratory Laboratory Tests Test 07/17/17 15:46 07/17/17 20:37 07/18/17 05:45 07/18/17 05:46 Hemoglobin 13.4 13.5 12.9 Hematocrit 40.5 41.5 39.5 White Blood Count 7.1 Red Blood Count 4.32 Mean Corpuscular Volume 91.5 Mean Corpuscular Hemoglobin 30.0 Mean Corpuscular Hemoglobin Concent 32.8 Red Cell Distribution Width 14.4 Platelet Count 210 Mean Platelet Volume 8.5 Neutrophils (%) (Auto) 59.3 Lymphocytes (%) (Auto) 26.0 Monocytes (%) (Auto) 9.3 Eosinophils (%) (Auto) 4.8 Basophils (%) (Auto) 0.6 Neutrophils # (Auto) 4.2 Lymphocytes # (Auto) 1.9 Monocytes # (Auto) 0.7 Eosinophils # (Auto) 0.3 Basophils # (Auto) 0.0 CBC Comment DIFF FINAL Differential Comment Blood Urea Nitrogen 11 Creatinine 1.35 Random Glucose 102 Calcium Level 8.8 Sodium Level 140 Potassium Level 3.8 Chloride Level 103 Carbon Dioxide Level 29.4 Anion Gap 8 Estimat Glomerular Filtration Rate 57 Imaging Last Impressions Abdomen X-Ray 07/17/17 0000 Signed Impressions: Service Date/Time: Monday, July 17, 2017 19:53 - CONCLUSION: Radiographically benign abdomen without evidence of obstruction or pneumoperitoneum. Matt Pruett MD Chest X-Ray 07/16/17 1904 Signed Impressions: Service Date/Time: Sunday, July 16, 2017 19:23 - CONCLUSION: No acute disease. Dhiraj Castillo MD Physical Exam HEENT: Pupils round and reactive to light; normocephalic; atraumatic; no jaundice. Throat and tongue coated NECK: Neck is supple,thin, no JVD, no lymphadenopathy. CHEST: Chest is clear , No rhonchi CARDIAC: Regular rate and rhythm with no murmur gallop or rubs. ABDOMEN: Soft, nondistended, nontender; bowel sounds are present in all four quadrants. EXTREMITIES: No clubbing, cyanosis, or edema. SKIN: Normal; no rash; no jaundice., pale UNIT CONTROLLER: No focal deficits; alert and oriented times three., appropriate (Kathleen Faulkner) Assessment and Plan Plan ASSESSMENT: - Upper GIB, Coffee ground emesis. Pt sent from local nursing facility for coffee ground emesis. Questionable hx of GIB (upper) in past, No outpatient records found. NGT d/cd, Denies any abd distress. HH stable at 12.9. On Xarelto at intermediate, currently on hold. 07/17, Benign abd. xray No abd distention noted. - N/V, resolved. - Anemia, mild. stable, no active bleed. - CARLOS. per attending - Heterozygous factor V Leiden mutation with hx PE, on Xarelto at home. Anticoagulation currently on hold. - CAD, HTN, Hyperlipidemia, Asthma, Ischemic cardiomyopathy per attending. PLAN: - BM X2, no further fullness or bloated abd Dulcolax supp given, effective abdomen xray negative, ct abdomen/pelvis ordered per GI recommendation - Protonix drip - Hold Xarelto -- ST continues, mild sore throat., NGT out. - Transfuse as necessary - monitor labs, cbc am - Supportive care - Further recommendations to follow based on results of above - Pt seen and examined by Dr. Reed and myself and this note is written on her behalf (Kathleen Faulkner) Kathleen Faulkner Jul 18, 2017 11:12 Muna Reed MD Jul 18, 2017 17:54
[2017-07-18] MEDS ORDERED: DIATRIZOATE MEGLUM/DIATRIZOATE SOD 9 ML CUP PO ONE (12:15)
[2017-07-18] MEDS ORDERED: PILL SPLITTER OTHER PRN (13:00)
--- NOTE | 2017-07-18 14:47 | GIPROC ---
[facility] [address] [facility]. [facility], [address] EGD PROCEDURE REPORT EXAM DATE: 07/18/2017 PATIENT NAME: Alden Braun MR #: [id number] BIRTHDATE: 1970 ATTENDING: Muna Reed MD ORDER #: [id number] FIELD HOCKEY AND LACROSSE COACH: Valdez Carlin and Xin Thompson STATUS: inpatient INDICATIONS: The patient is a 46 yr old male here for an EGD due to gi bleeding, n, v PROCEDURE PERFORMED: EGD w/ biopsy MEDICATIONS: None and Per Anesthesia. TOPICAL ANESTHETIC: none CONSENT: The patient understands the risks and benefits of the procedure and understands that these risks include, but are not limited to: sedation, allergic reaction, infection, perforation and/or bleeding. Alternative means of evaluation and treatment include, among others: physical exam, x-rays, and/or surgical intervention. The patient elects to proceed with this endoscopic procedure. medical equipment was checked for proper function. Hand hygiene and appropriate measures for infection prevention was taken. After the risks, benefits and alternatives of the procedure were thoroughly explained, Informed consent was verified, confirmed and timeout was successfully executed by the treatment team. The patient was anesthetized with topical anesthesia and the Pentax EG-[id number] endoscope was introduced through the mouth and advanced to the second portion of the duodenum. Retroflexed views revealed a hiatal hernia The gastroscope was then slowly withdrawn and removed. Severe esophagitis distal esophagus-biopsy r/o ricardo gastritis antrum-biopsy duodenitis duodenla bulb-biopsy. ADVERSE EVENTS: There were no complications. IMPRESSIONS: 1. Severe esophagitis distal esophagus-biopsy gastritis antrum-biopsy duodenitis duodenla bulb-biopsy 2. Retroflexed views revealed a hiatal hernia RECOMMENDATIONS: 1. Await biopsy results. Biopsy results will not be ready for 7-10 days. If you don't hear from us in two weeks, call our office for biopsy results. 2. Anti-reflux regimen 3. Continue PPI 4. Trial of liquid Carafate soft diet Nystatin swish and swallow PATIENT CONDITION: stable DISPOSITION: Inpatient REPEAT EXAM: Return 3 months EGD Muna Reed MD eSigned: Muna Reed MD 07/18/2017 2:46 PM cc: PATIENT NAME: Alden Braun MR#: [id number]
[2017-07-18] MEDS: ACETAMINOPHEN/CODEINE 300 MG/30 MG TAB PO PRN (16:10)
[2017-07-18] MEDS: SODIUM CHLOR 0.9% 1000 ML INJ 1,000 ML IV SCH (16:11)
[2017-07-18] MEDS: SUCRALFATE 1 GM/10 ML CUP PO SCH ×2 (16:12→21:03)
[2017-07-18] MEDS ORDERED: IOHEXOL 350 MG/ML 10 ML VIAL (for RAD DIAG) IVCONTRAST ONE (17:51)
--- NOTE | 2017-07-18 18:01 | RADRPT ---
EXAM DATE/TIME: 07/18/2017 17:38 [place] COMPARISON: No previous studies available for comparison. INDICATIONS : Diffuse upper abdomen pain for one day. IV CONTRAST: 67 cc Omnipaque 350 (iohexol) IV ORAL CONTRAST: Prescribed oral contrast ingested. RADIATION DOSE: 15.25 CTDIvol (mGy) MEDICAL HISTORY : Cardiovascular disease. Hypertension. Hiatal hernia, CVA SURGICAL HISTORY : Pacemaker. Appendectomy. ENCOUNTER: Initial ACUITY: 1 day PAIN SCALE: 2/10 LOCATION: Bilateral upper quadrant TECHNIQUE: Volumetric scanning of the abdomen and pelvis was performed. Using automated exposure control and ad justment of the mA and/or kV according to patient size, radiation dose was kept as low as reasonably achievable to obtain optimal diagnostic quality images. DICOM format image data is available electro nically for review and comparison. FINDINGS: LOWER LUNGS: The visualized lower lungs are clear. LIVER: Homogeneous density without lesion. There is no dilation of the biliary tree. There is mild hepatic steatosis. There are multiple small faint calcified gallstones. There is no wall thickening or inflam matory change. SPLEEN: Normal size without lesion. PANCREAS: Within normal limits. KIDNEYS: Normal in size and shape. There is no solid mass, stone or hydronephrosis. There is a simple cyst in the left kidney. ADRENAL GLANDS: Within normal limits. VASCULAR: There is no aortic aneurysm. BOWEL/MESENTERY: There are multiple loops of nondilated air-containing small bowel several small air-fluid levels. Col on is unremarkable. There is no free intraperitoneal air or fluid. ABDOMINAL WALL: Within normal limits. RETROPERITONEUM: There is no lymphadenopathy. BLADDER: No wall thickening or mass. There is high density layering in the dependent portion of the bladder. REPRODUCTIVE: Within normal limits. INGUINAL: There is no lymphadenopathy. There is a right inguinal hernia containing mesenteric fat. MUSCULOSKELETAL: Within normal limits for patient age. CONCLUSION: 1. Mildly nonspecific, nonobstructive bowel gas pattern which may represent a mild ileus or gastroent eritis. 2. Apparent small stones layering dependently in the urinary bladder. 3. Mild hepatic steatosis. 4. Mild cholelithiasis. 5. Right inguinal hernia containing mesenteric fat. Brigido Nguyen MD on July 18, 2017 at 17:55 Board Certified Radiologist. This report was verified electronically.
[2017-07-18] MEDS: ATORVASTATIN 40 MG TAB PO SCH (21:03)
[2017-07-18] MEDS: MELATONIN 5 MG TAB PO SCH (21:03)
[2017-07-19] VITALS: BP 115/64; PULSE 83; RESP 18; TEMP 97.4; O2SAT 95
[2017-07-19] MEDS: SODIUM CHLOR 0.9% 1000 ML INJ 1,000 ML IV SCH ×2 (02:57→13:00)
[2017-07-19 03:39] VITALS: BP 111/61; PULSE 84; RESP 18; TEMP 96.8; O2SAT 96
[2017-07-19] MEDS: ACETAMINOPHEN/CODEINE 300 MG/30 MG TAB PO PRN (04:44)
[2017-07-19 06:10] LABS: BICARBONATE 29.6 MEQ/L (21.0-32.0); POTASSIUM 3.8 MEQ/L (3.5-5.1)
[2017-07-19 06:17] LABS: HEMATOCRIT 34.6 % (39.0-51.0); MEAN CELL VOLUME 90.9 FL (80.0-100.0); MEAN CORPUSCULAR HEMOGLOBIN 30.1 PG (27.0-34.0); MEAN CORPUSCULAR HGB CONC 33.2 % (32.0-36.0); PLATELET COUNT 188 TH/MM3 (150-450); RED BLOOD COUNT 3.81 MIL/MM3 (4.50-5.90); RED CELL DISTRIBUTION WIDTH 14.1 % (11.6-17.2); REVIEW FLAG FINAL; WHITE BLOOD COUNT 6.6 TH/MM3 (4.0-11.0)
[2017-07-19] MEDS: PANTOPRAZOLE INJ 80 MG in SODIUM CHLORIDE 0.9% INJ 100 ML IV SCH (06:32)
[2017-07-19 08:00] VITALS: BP 103/57; PULSE 68; RESP 20; TEMP 97.9; O2SAT 92
--- NOTE | 2017-07-19 08:34 | HHI.PR ---
Subjective Remarks This is a pleasant 46 y/o Male with CVA, CAD, Hypertension, PE on chronic anticoagulation with Xarelto, brought in to ER with coffee-ground emesis. An NG tube was placed in the emergency department which initially was positive for 300 cc of coffee-ground emesis, which transitioned to bright red blood. H& H 13.8/41.0. Laboratory values significant for creatinine of 1.31 (baseline). Vital signs: Pulse 77, respiratory rate 16, BP 115/77, pulse ox 94% on room air. He has also Hypertension, Hyperlipidemia, PE on anticoagulation, 07/17: Status post GI specialist consult, he has Heterozygous factor V Leiden mutation with history of PE, recommended for EGD, Xarelto on Hold, stable seen in his bedroom and awaiting for procedure to be performed. PT evaluation recommended already. 07/18: Seen in his bedroom stable, no nausea, vomit or diarrhea, laboratory stable, awaiting for final recommendations by GI specialist Hemoglobin 12.9. 07/19: Stable seen in his bedroom, discussed with nurse No signs of GI bleed at this time, status post EGD performed Yesterday, found Severe Esophagitis distal esophagus biopsy, Gastritis Antrum Biopsy, Duodenitis, Hiatal hernia, recommended to follow biopsy results, anti-reflux regimen, continue PPI and trial of liquid Carafate, soft diet and Nystatin swish and swallow. next EGD in three months as per Doctor Muna Reed, Discussed with GI today and okay to discharge at this time and follow up as outpatient no further recommendations. No nausea, vomit or diarrhea. Objective Vital Signs Date Time Temp Pulse Resp B/P (MAP) Pulse Ox O2 Delivery O2 Flow Rate FiO2 07/19/17 03:39 96.8 84 18 111/61 (78) 96 07/19/17 00:00 97.4 83 18 115/64 (81) 95 07/18/17 23:00 83 07/18/17 20:00 86 07/18/17 18:04 70 07/18/17 16:00 96.2 67 17 128/91 (103) 99 07/18/17 14:48 97.2 77 18 110/79 (89) 94 07/18/17 12:00 98.0 73 17 103/65 (78) 94 I/O 07/18/17 07/18/17 07/18/17 07/19/17 07/19/17 07/19/17 07:00 15:00 23:00 07:00 15:00 23:00 Intake Total 0 ml 540 ml 531 ml 1322 ml Balance 0 ml 540 ml 531 ml 1322 ml Intake Oral 0 ml 240 ml 480 ml 240 ml IV Total 51 ml 1082 ml Other 300 ml # Voids 2 3 1 2 # Bowel Movements 1 0 1 1 Result Diagram: 07/19/17 0455 07/19/17 0455 Imaging Last Impressions Abdomen/Pelvis CT 07/18/17 0000 Signed Impressions: Service Date/Time: June 17:38 - CONCLUSION: 1. Mildly nonspecific, nonobstructive bowel gas pattern which may represent a mild ileus or gastroenteritis. 2. Apparent small stones layering dependently in the urinary bladder. 3. Mild hepatic steatosis. 4. Mild cholelithiasis. 5. Right inguinal hernia containing mesenteric fat. Brigido Nguyen MD Abdomen X-Ray 07/17/17 0000 Signed Impressions: Service Date/Time: Monday, July 17, 2017 19:53 - CONCLUSION: Radiographically benign abdomen without evidence of obstruction or pneumoperitoneum. Matt Pruett MD Chest X-Ray 07/16/17 1904 Signed Impressions: Service Date/Time: Sunday, July 16, 2017 19:23 - CONCLUSION: No acute disease. Dhiraj Castillo MD Procedures 07/18/17 EGD found Severe Esophagitis distal esophagus biopsy, Gastritis Antrum Biopsy, Duodenitis, Hiatal hernia, recommended to follow biopsy results, anti-reflux regimen, continue PPI and trial of liquid Carafate, soft diet and Nystatin swish and swallow. next EGD in three months as per Doctor Muna Reed Other Results Laboratory Tests Test 07/16/17 19:14 07/16/17 22:50 07/17/17 06:52 07/18/17 05:45 Prothrombin Time 13.6 SEC Prothromb Time International Ratio 1.2 RATIO Activated Partial Thromboplast Time 30.8 SEC Lipase 69 U/L Urine Color YELLOW Urine Turbidity HAZY Urine pH 8.0 Urine Specific [place] 1.018 Urine Protein NEG mg/dL Urine Glucose (UA) NEG mg/dL Urine Ketones NEG mg/dL Urine Occult Blood NEG Urine Nitrite NEG Urine Bilirubin NEG Urine Urobilinogen LESS THAN 2.0 MG/DL Urine Leukocyte Esterase NEG Urine RBC 3 /hpf Urine WBC 3 /hpf Microscopic Urinalysis Comment CULT NOT INDICATED Blood Urea Nitrogen 13 MG/DL Creatinine 1.36 MG/DL Random Glucose 80 MG/DL Total Protein 7.0 GM/DL Albumin 3.4 GM/DL Calcium Level 8.2 MG/DL Alkaline Phosphatase 47 U/L Aspartate Amino Transf (AST/SGOT) 19 U/L Alanine Aminotransferase (ALT/SGPT) 13 U/L Total Bilirubin 0.6 MG/DL Sodium Level 139 MEQ/L Potassium Level 4.3 MEQ/L Chloride Level 107 MEQ/L Carbon Dioxide Level 24.4 MEQ/L Neutrophils (%) (Auto) 59.3 % Lymphocytes (%) (Auto) 26.0 % Monocytes (%) (Auto) 9.3 % Eosinophils (%) (Auto) 4.8 % Basophils (%) (Auto) 0.6 % Neutrophils # (Auto) 4.2 TH/MM3 Lymphocytes # (Auto) 1.9 TH/MM3 Monocytes # (Auto) 0.7 TH/MM3 Eosinophils # (Auto) 0.3 TH/MM3 Basophils # (Auto) 0.0 TH/MM3 CBC Comment DIFF FINAL Differential Comment Test 07/19/17 04:55 White Blood Count 6.6 TH/MM3 Red Blood Count 3.81 MIL/MM3 Hemoglobin 11.5 GM/DL Hematocrit 34.6 % Mean Corpuscular Volume 90.9 FL Mean Corpuscular Hemoglobin 30.1 PG Mean Corpuscular Hemoglobin Concent 33.2 % Red Cell Distribution Width 14.1 % Platelet Count 188 TH/MM3 Mean Platelet Volume 8.6 FL Blood Urea Nitrogen 15 MG/DL Creatinine 1.27 MG/DL Random Glucose 97 MG/DL Calcium Level 8.0 MG/DL Sodium Level 138 MEQ/L Potassium Level 3.8 MEQ/L Chloride Level 103 MEQ/L Carbon Dioxide Level 29.6 MEQ/L Anion Gap 5 MEQ/L Estimat Glomerular Filtration Rate 61 ML/MIN Objective Remarks GENERAL: male sitting up in bed SKIN: No rashes, ecchymoses or lesions. Cool and dry. HEAD: Atraumatic. Normocephalic. No temporal or scalp tenderness. ENT: Nose without bleeding, purulent drainage or septal hematoma. NECK: Trachea midline. No JVD or lymphadenopathy. CARDIOVASCULAR: Regular rate and rhythm without murmurs, gallops, or rubs. RESPIRATORY: Clear to auscultation. Breath sounds equal bilaterally. No wheezes , rales, or rhonchi. GASTROINTESTINAL: Abdomen soft, non-tender, nondistended. No hepato-splenomegaly , or palpable masses. No guarding. MUSCULOSKELETAL: Extremities without clubbing, cyanosis, or edema. NEUROLOGICAL: Awake and alert. Cranial nerves II through XII intact. Mild slurring of speech. RUE/RLE strength 3/5. Limited ROM RLE/RUE. Medications and IVs Current Medications Medications (Trade) Dose Ordered Sig/Kathleen Route Start Time Stop Time Status Last Admin Pantoprazole Sodium 80 mg/ Sodium Chloride 100 ml @ 10 mls/hr Q10H IV 07/16/17 19:04 07/19/17 06:32 (NS Flush) 2 ml UNSCH PRN IV FLUSH 07/16/17 21:15 (NS Flush) 2 ml BID IV FLUSH 07/17/17 09:00 07/18/17 21:03 (Zofran Inj) 4 mg Q6H PRN IV PUSH 07/16/17 21:15 07/17/17 05:21 (Lipitor) 40 mg HS PO 07/16/17 21:15 07/18/17 21:03 (Neurontin) 100 mg BID PRN PO 07/16/17 21:15 (Prinivil) 10 mg DAILY PO 07/17/17 09:00 07/17/17 09:04 (Zoloft) 75 mg DAILY PO 07/17/17 09:00 07/17/17 09:04 (Tricor) 48 mg DAILY PO 07/17/17 09:00 07/17/17 09:04 (Melatonin) 5 mg HS PO 07/16/17 21:15 07/18/17 21:03 (Ativan) 0.5 mg Q12HR PRN PO 07/16/17 21:15 (Tylenol-Codeine #3) 1 tab Q8HR PRN PO 07/16/17 21:15 07/19/17 04:44 (Pill Splitter) 1 ea UNSCH PRN OTHER 07/18/17 13:00 Sodium Chloride 1,000 ml @ 100 mls/hr Q10H IV 07/18/17 15:00 07/19/17 02:57 (Carafate Liq) 1 gm ACHS PO 07/18/17 17:00 07/18/17 21:03 A/P Assessment and Plan 46-year-old male with a past medical history significant for CVA, CAD, hypertension, hyperlipidemia and PE chronically anticoagulated on Xarelto presents with upper GI bleed. 1. Upper GI bleed, following Hemoglobin, Transfuse as necessary, NG tube to LIWS, GI specialist consulted, continue PIP he has Heterozygous factor V Leiden mutation with history of PE, 07/18/17 EGD found Severe Esophagitis distal esophagus biopsy, Gastritis Antrum Biopsy, Duodenitis, Hiatal hernia, recommended to follow biopsy results, anti-reflux regimen, continue PPI and trial of liquid Carafate, soft diet and Nystatin swish and swallow. next EGD in three months as per Doctor Muna Reed, Hemoglobin stable 11.5 gr/dl okay from GI specialist standpoint for discharge 2. History of PE, on chronic anticoagulation, GI recommended to continue his Xarelto. 3. CAD/hypertension/hyperlipidemia Continue home medications 4. History of CVA Residual weakness baseline PT consult will go to Rehab. 5. Acute Kidney Injury Improved. Discharge To SNF as per Medicine and GI specialist. Discharge Planning Discharge to SNF now. Juve Comer MD Jul 19, 2017 08:34
[2017-07-19] MEDS: FENOFIBRATE 48 MG TAB PO SCH (09:49)
[2017-07-19] MEDS: SODIUM CHLORIDE 0.9% FLUSH 10 ML FLUSH IV FLUSH SCH (09:49)
[2017-07-19] MEDS: SUCRALFATE 1 GM/10 ML CUP PO SCH ×2 (09:49→13:00)
[2017-07-19] MEDS: SERTRALINE HCL 50 MG TAB PO SCH (09:49)
[2017-07-19] MEDS: LISINOPRIL 10 MG TAB PO SCH (09:49)
--- NOTE | 2017-07-19 11:00 | HHI.GIFU ---
Subjective Remarks Resting in bed. No distress. No n/v. No bleeding. Mild abdominal discomfort/ bloating. + BM. (Betty Rodriguez) Objective Vitals I&O Vital Signs Date Time Temp Pulse Resp B/P (MAP) Pulse Ox O2 Delivery O2 Flow Rate FiO2 07/19/17 08:00 97.9 68 20 103/57 (72) 92 07/19/17 03:39 96.8 84 18 111/61 (78) 96 07/19/17 00:00 97.4 83 18 115/64 (81) 95 07/18/17 23:00 83 07/18/17 20:00 86 07/18/17 18:04 70 07/18/17 16:00 96.2 67 17 128/91 (103) 99 07/18/17 14:48 97.2 77 18 110/79 (89) 94 07/18/17 12:00 98.0 73 17 103/65 (78) 94 I/O 07/18/17 07/18/17 07/18/17 07/19/17 07/19/17 07/19/17 07:00 15:00 23:00 07:00 15:00 23:00 Intake Total 0 ml 540 ml 531 ml 1322 ml Balance 0 ml 540 ml 531 ml 1322 ml Intake Oral 0 ml 240 ml 480 ml 240 ml IV Total 51 ml 1082 ml Other 300 ml # Voids 2 3 1 2 # Bowel Movements 1 0 1 1 Laboratory Laboratory Tests Test 07/19/17 04:55 White Blood Count 6.6 Red Blood Count 3.81 Hemoglobin 11.5 Hematocrit 34.6 Mean Corpuscular Volume 90.9 Mean Corpuscular Hemoglobin 30.1 Mean Corpuscular Hemoglobin Concent 33.2 Red Cell Distribution Width 14.1 Platelet Count 188 Mean Platelet Volume 8.6 Blood Urea Nitrogen 15 Creatinine 1.27 Random Glucose 97 Calcium Level 8.0 Sodium Level 138 Potassium Level 3.8 Chloride Level 103 Carbon Dioxide Level 29.6 Anion Gap 5 Estimat Glomerular Filtration Rate 61 Imaging Last Impressions Abdomen/Pelvis CT 07/18/17 0000 Signed Impressions: Service Date/Time: June 17:38 - CONCLUSION: 1. Mildly nonspecific, nonobstructive bowel gas pattern which may represent a mild ileus or gastroenteritis. 2. Apparent small stones layering dependently in the urinary bladder. 3. Mild hepatic steatosis. 4. Mild cholelithiasis. 5. Right inguinal hernia containing mesenteric fat. Brigido Nguyen MD Abdomen X-Ray 07/17/17 0000 Signed Impressions: Service Date/Time: Monday, July 17, 2017 19:53 - CONCLUSION: Radiographically benign abdomen without evidence of obstruction or pneumoperitoneum. Matt Pruett MD Chest X-Ray 07/16/17 1904 Signed Impressions: Service Date/Time: Sunday, July 16, 2017 19:23 - CONCLUSION: No acute disease. Dhiraj Castillo MD Physical Exam HEENT: Normocephalic; atraumatic; no jaundice. CHEST: Resp. even/unlabored, diminished. CARDIAC: RRR ABDOMEN: Soft, mildly distended, nontender; no hepatosplenomegaly; bowel sounds are present in all four quadrants. SKIN: RUE erythematous MEDICAL STAFFING COORDINATOR: Lethargic oriented times three. (Betty Rodriguez) Assessment and Plan Plan ASSESSMENT: - Upper GIB, Coffee ground emesis. Pt sent from local nursing facility for coffee ground emesis. Questionable hx of GIB (upper) in past, but I cannot find any records of this at this facility or in our outpatient records (Pt states it was here when he had his PE-2014). S/P EGD (07/18/17)---> 1. Severe esophagitis distal esophagus-biopsy, gastritis antrum-biopsy, duodenitis duodenal bulb-biopsy 2. Retroflexed views revealed a hiatal hernia. Pathology pending. CT Abdomen abdomen and pelvis with contrast (07/18/17)----> Mildly nonspecific, nonobstructive bowel gas pattern which may represent a mild ileus or gastroenteritis. Apparent small stones layering dependently in the urinary bladder. Mild hepatic steatosis. Mild cholelithiasis. Right inguinal hernia containing mesenteric fat. Protonix Gtt. Carafate. HH .34.6. Tolerating diet. No vomiting. - N/V, resolved. - Abdominal distention, mild. Mild discomfort. No n/v. Mild ileus or gastroenteritis on CT. Improving. + BM. - Anemia, mild. .34.6. - CARLOS. - Heterozygous factor V Leiden mutation with hx PE, on Xarelto at home. Anticoagulation currently on hold. - CAD, HTN, Hyperlipidemia, Asthma, Ischemic cardiomyopathy per attending. PLAN: - DIMAS - Await pathology - D/C Protonix Gtt - Protonix 40mg po BID - Carafate 1 gram po ACHS - Miralax 17gram po daily - Okay to resume Xarelto from GI standpoint - FU FILIBERTO 2 weeks - GI will sign off, please reconsult as needed - Supportive care - Further recommendations to follow based on results of above - Pt seen and examined by Dr. Reed and myself and this note is written on her behalf (Betty Rodriguez) Betty Rodriguez Jul 19, 2017 11:00 Muna Reed MD Jul 19, 2017 20:03
[2017-07-19 11:40] VITALS: PULSE 62
[2017-07-19] MEDS ORDERED: LORA-392 PO (11:57)
[2017-07-19] MEDS ORDERED: SUCR1S PO (11:57)
[2017-07-19] MEDS ORDERED: ACET1TAB94 PO (11:57)
[2017-07-19] MEDS ORDERED: PANT40TA3 PO (11:57)
--- NOTE | 2017-07-19 11:59 | HHI.DS ---
Discharge Summary Admission Date Jul 16, 2017 at 21:03 Discharge Date: Jul 19, 2017 Admitting Diagnosis upper GI bleed on Xarelto (1) Esophagitis ICD Code: K20.9 - Esophagitis, unspecified Diagnosis: Principal (2) Upper GI bleed ICD Code: K92.2 - Gastrointestinal hemorrhage, unspecified Diagnosis: Principal Status: Acute Procedures 07/18/17 EGD found Severe Esophagitis distal esophagus biopsy, Gastritis Antrum Biopsy, Duodenitis, Hiatal hernia, recommended to follow biopsy results, anti-reflux regimen, continue PPI and trial of liquid Carafate, soft diet and Nystatin swish and swallow. next EGD in three months as per Doctor Muna Reed Brief History - From Admission 46-year-old male with a past medical history significant for CVA, CAD, hypertension, PE on chronic anticoagulation with Xarelto was brought to the emergency department via EMS from his assisted for coffee-ground emesis. The patient reports he started vomiting yesterday and the vomiting continued through today. He endorses coffee-ground emesis. He denies any abdominal pain or diarrhea associated with his symptoms. He denies any dark colored stools. An NG tube was placed in the emergency department which initially was positive for 300 cc of coffee-ground emesis, which transitioned to bright red blood. H& H 13.8/41.0. Laboratory values significant for creatinine of 1.31 (baseline). Vital signs: Pulse 77, respiratory rate 16, BP 115/77, pulse ox 94% on room air. CBC/BMP: 07/19/17 0455 07/19/17 0455 Significant Findings Laboratory Tests Test 07/16/17 19:14 07/16/17 22:50 07/17/17 01:09 07/17/17 06:52 Eosinophils (%) (Auto) 4.8 % (0.0-4.0) 4.1 % (0.0-4.0) Prothrombin Time 13.6 SEC (9.8-11.6) Activated Partial Thromboplast Time 30.8 SEC (24.3-30.1) Creatinine 1.31 MG/DL (0.60-1.30) 1.36 MG/DL (0.60-1.30) Estimat Glomerular Filtration Rate 59 ML/MIN (>89) 56 ML/MIN (>89) Lipase 69 U/L (73-393) Urine Turbidity HAZY (CLEAR) Hemoglobin 12.8 GM/DL (13.0-17.0) 12.9 GM/DL (13.0-17.0) Red Blood Count 4.23 MIL/MM3 (4.50-5.90) Calcium Level 8.2 MG/DL (8.5-10.1) Test 07/17/17 15:46 07/17/17 20:37 07/18/17 05:45 07/18/17 05:46 Red Blood Count 4.32 MIL/MM3 (4.50-5.90) Hemoglobin 12.9 GM/DL (13.0-17.0) Monocytes (%) (Auto) 9.3 % (0.0-8.0) Eosinophils (%) (Auto) 4.8 % (0.0-4.0) Creatinine 1.35 MG/DL (0.60-1.30) Estimat Glomerular Filtration Rate 57 ML/MIN (>89) Test 07/19/17 04:55 Red Blood Count 3.81 MIL/MM3 (4.50-5.90) Hemoglobin 11.5 GM/DL (13.0-17.0) Hematocrit 34.6 % (39.0-51.0) Calcium Level 8.0 MG/DL (8.5-10.1) Estimat Glomerular Filtration Rate 61 ML/MIN (>89) Imaging Last Impressions Abdomen/Pelvis CT 07/18/17 0000 Signed Impressions: Service Date/Time: June 17:38 - CONCLUSION: 1. Mildly nonspecific, nonobstructive bowel gas pattern which may represent a mild ileus or gastroenteritis. 2. Apparent small stones layering dependently in the urinary bladder. 3. Mild hepatic steatosis. 4. Mild cholelithiasis. 5. Right inguinal hernia containing mesenteric fat. Brigido Nguyen MD Abdomen X-Ray 07/17/17 0000 Signed Impressions: Service Date/Time: Monday, July 17, 2017 19:53 - CONCLUSION: Radiographically benign abdomen without evidence of obstruction or pneumoperitoneum. Matt Pruett MD Chest X-Ray 07/16/17 5026 Signed Impressions: Service Date/Time: Sunday, July 16, 2017 19:23 - CONCLUSION: No acute disease. Dhiraj Castillo MD PE at Discharge GENERAL: male sitting up in bed SKIN: No rashes, ecchymoses or lesions. Cool and dry. HEAD: Atraumatic. Normocephalic. No temporal or scalp tenderness. ENT: Nose without bleeding, purulent drainage or septal hematoma. NECK: Trachea midline. No JVD or lymphadenopathy. CARDIOVASCULAR: Regular rate and rhythm without murmurs, gallops, or rubs. RESPIRATORY: Clear to auscultation. Breath sounds equal bilaterally. No wheezes , rales, or rhonchi. GASTROINTESTINAL: Abdomen soft, non-tender, nondistended. No hepato-splenomegaly , or palpable masses. No guarding. MUSCULOSKELETAL: Extremities without clubbing, cyanosis, or edema. NEUROLOGICAL: Awake and alert. Cranial nerves II through XII intact. Mild slurring of speech. RUE/RLE strength 3/5. Limited ROM RLE/RUE. Hospital Course This is a pleasant 46 y/o Male with CVA, CAD, Hypertension, PE on chronic anticoagulation with Xarelto, brought in to ER with coffee-ground emesis. An NG tube was placed in the emergency department which initially was positive for 300 cc of coffee-ground emesis, which transitioned to bright red blood. H& H 13.8/41.0. Laboratory values significant for creatinine of 1.31 (baseline). Vital signs: Pulse 77, respiratory rate 16, BP 115/77, pulse ox 94% on room air. He has also Hypertension, Hyperlipidemia, PE on anticoagulation, 07/17: Status post GI specialist consult, he has Heterozygous factor V Leiden mutation with history of PE, recommended for EGD, Xarelto on Hold, stable seen in his bedroom and awaiting for procedure to be performed. PT evaluation recommended already. 07/18: Seen in his bedroom stable, no nausea, vomit or diarrhea, laboratory stable, awaiting for final recommendations by GI specialist Hemoglobin 12.9. 07/19: Stable seen in his bedroom, discussed with nurse No signs of GI bleed at this time, status post EGD performed Yesterday, found Severe Esophagitis distal esophagus biopsy, Gastritis Antrum Biopsy, Duodenitis, Hiatal hernia, recommended to follow biopsy results, anti-reflux regimen, continue PPI and trial of liquid Carafate, soft diet and Nystatin swish and swallow. next EGD in three months as per Doctor Muna Reed, Discussed with GI today and okay to discharge at this time and follow up as outpatient no further recommendations. No nausea, vomit or diarrhea. Assessment and Plan 46-year-old male with a past medical history significant for CVA, CAD, hypertension, hyperlipidemia and PE chronically anticoagulated on Xarelto presents with upper GI bleed. 1. Upper GI bleed, following Hemoglobin, Transfuse as necessary, NG tube to LIWS, GI specialist consulted, continue PIP he has Heterozygous factor V Leiden mutation with history of PE, 07/18/17 EGD found Severe Esophagitis distal esophagus biopsy, Gastritis Antrum Biopsy, Duodenitis, Hiatal hernia, recommended to follow biopsy results, anti-reflux regimen, continue PPI and trial of liquid Carafate, soft diet and Nystatin swish and swallow. next EGD in three months as per Doctor Muna Reed, Hemoglobin stable 11.5 gr/dl okay from GI specialist standpoint for discharge 2. History of PE, on chronic anticoagulation, GI recommended to continue his Xarelto. 3. CAD/hypertension/hyperlipidemia Continue home medications 4. History of CVA Residual weakness baseline PT consult will go to Rehab. 5. Acute Kidney Injury Improved. Discharge To SNF as per Medicine and GI specialist. Discharge Planning Discharge to SNF now. Pt Condition on Discharge: Good Discharge Disposition: Discharge to SNF Discharge Time: > 30 minutes Discharge Instructions DIET: Follow Instructions for: Heart Healthy Diet Activities you can perform: Regular-No Restrictions Juve Comer MD Jul 19, 2017 11:59
[2017-07-19 12:00] VITALS: BP 108/59; PULSE 73; RESP 19; TEMP 96.6; O2SAT 96
[2017-07-19] MEDS ORDERED: PANTOPRAZOLE SOD 40 MG DELAYED RELEASE TAB PO SCH (21:00)
== END 2017-07-19 16:09 | DRG 378 ==
LOC: NEPE 18:25 → NEDA 21:03 → N06B 22:06
PROVIDERS: ADMIT Internal Medicine; ATTEND Internal Medicine
PROC: 0DB68ZX Excision of Stomach, Via Natural or Artificial Opening Endoscopic, Diagnostic (ICD-10-PCS; 2017-07-18)
PROC: 0DB38ZX Excision of Lower Esophagus, Via Natural or Artificial Opening Endoscopic, Diagnostic (ICD-10-PCS; 2017-07-18)
PROC: 0DB98ZX Excision of Duodenum, Via Natural or Artificial Opening Endoscopic, Diagnostic (ICD-10-PCS; principal; 2017-07-18 14:05)
DX: K92.2 Gastrointestinal hemorrhage, unspecified (principal); N17.9 Acute kidney failure, unspecified; D68.51 Activated protein C resistance; I69.351 Hemiplegia and hemiparesis following cerebral infarction affecting right dominant side; K20.9 Esophagitis, unspecified; I10 Essential (primary) hypertension; Z79.02 Long term (current) use of antithrombotics/antiplatelets; I25.10 Atherosclerotic heart disease of native coronary artery without angina pectoris; Z86.711 Personal history of pulmonary embolism; E78.5 Hyperlipidemia, unspecified; Z95.1 Presence of aortocoronary bypass graft; Z95.0 Presence of cardiac pacemaker; Z87.891 Personal history of nicotine dependence; F41.9 Anxiety disorder, unspecified; J45.909 Unspecified asthma, uncomplicated; I25.5 Ischemic cardiomyopathy; D64.9 Anemia, unspecified; K29.70 Gastritis, unspecified, without bleeding; K44.9 Diaphragmatic hernia without obstruction or gangrene
CPT/HCPCS: 71010; 74020; 74177; 80048; 80053; 81001; 83690; 85014; 85018; 85025; 85027; 85610; 85730; 86850; 86900; 86901; 88305; 88312; 96361; 96365; 96375; 96376; C9113; J2405; J7030; Q9963; Q9967

== ENCOUNTER 2017-09-12 05:56 | Inpatient (IN) | payer MEDICARE, OTHER ==
[~2017-09-12] VITALS: Ht 165.1 cm; Wt 76.4 kg
[2017-09-12] VITALS (8 sets, daily range): BP systolic 99–141; BP diastolic 56–87; PULSE 63–114; RESP 18–22; TEMP 97.1–102.8; O2SAT 94–97
[~2017-09-12 05:56] MED LIST changes: +ACET1TAB94 PO; +ASPI-147 PO; -COUM3TAB PO; -ECOT81TA2 PO; -HYDR-3129 PO; +LIPI40TA PO; +LISI10TA3 PO; +LORA-392 PO; -LOVA1TAB47 PO; +MECL-62 PO; +MELA3TAB52 PO; +MILKSUS PO; +NEUR100C PO; +PANT40TA3 PO; -PRIN10TA PO; +PSYL575P2 PO; -SERT-129 PO; +SUCR1S PO; -VENTAER INH; +XARE20TA PO; +ZOLO50TA PO
[2017-09-12] MEDS ORDERED: PIPERACIL-TAZO 4.5 GM PREMIX 100 ML IV ONE (06:00)
[2017-09-12] MEDS ORDERED: ACETAMINOPHEN 325 MG TAB PO ONE (06:00)
[2017-09-12] MEDS: VANCOMYCIN 1 GM/200 ML INJ 200 ML IV ONE ×2 (06:00→06:50)
[2017-09-12] MEDS ORDERED: ACETAMINOPHEN 650 MG SUPP RECTAL ONE (06:15)
[2017-09-12 06:24] LABS: AUTOMATED NEUTROPHIL # 9.4 TH/MM3 (1.8-7.7); BASOPHIL # 0.1 TH/MM3 (0-0.2); BASOPHIL % 0.4 % (0.0-2.0); EOSINOPHIL # 0.4 TH/MM3 (0-0.4); EOSINOPHIL % 3.1 % (0.0-4.0); HEMATOCRIT 40.4 % (39.0-51.0); HEMOGLOBIN 13.5 GM/DL (13.0-17.0); LYMPH % 15.4 % (9.0-44.0); MEAN CELL VOLUME 89.5 FL (80.0-100.0); MEAN CORPUSCULAR HEMOGLOBIN 29.9 PG (27.0-34.0); MEAN CORPUSCULAR HGB CONC 33.4 % (32.0-36.0); MEAN PLATELET VOLUME 8.6 FL (7.0-11.0); MONO % 6.7 % (0.0-8.0); MONOCYTE # 0.8 TH/MM3 (0-0.9); NEUT % 74.4 % (16.0-70.0); PLATELET COUNT 216 TH/MM3 (150-450); RED BLOOD COUNT 4.51 MIL/MM3 (4.50-5.90); WHITE BLOOD COUNT 12.7 TH/MM3 (4.0-11.0)
[2017-09-12] MEDS ORDERED: OMEP20TA93 PO (06:29)
[2017-09-12 06:39] LABS: INTERNATIONAL NORMALIZED RATIO 1.2 RATIO; PROTHROMBIN TIME - PATIENT 12.3 SEC (9.8-11.6)
[2017-09-12 06:42] LABS: LACTIC ACID SEPSIS PROTOCOL 2.3 mmol/L (0.4-2.0)
--- NOTE | 2017-09-12 06:42 | RADRPT ---
EXAM DATE/TIME: 09/12/2017 06:17 [facility] COMPARISON: CT ABDOMEN & PELVIS W CONTRAST, July 18, 2017, 17:38. CHEST SINGLE AP, July 16, 2017, 19:23. INDICATIONS : Fever. MEDICAL HISTORY : Cardiovascular disease. Hypertension Hiatal hernia. CVA SURGICAL HISTORY : CABG. Pacemaker. ENCOUNTER: Initial ACUITY: 1 day PAIN SCORE: 0/10 LOCATION: Bilateral chest FINDINGS: Configuration of the heart is stable from prior. Evidence of prior median sternotomy and CABG cardia c pacer leads unchanged. The lungs are symmetrically aerated without focal infiltrate or consolidati on. Both hemidiaphragms are well delineated. Heart size is normal. CONCLUSION: No infiltrates seen. Erick Medina MD on September 12, 2017 at 6:40 Board Certified Radiologist. This report was verified electronically.
[2017-09-12 06:47] LABS: ALBUMIN 3.5 GM/DL (3.4-5.0); ALT (GPT) 19 U/L (12-78); AST (GOT) 16 U/L (15-37); BICARBONATE 26.8 MEQ/L (21.0-32.0); BLOOD UREA NITROGEN 12 MG/DL (7-18); CALCIUM 7.8 MG/DL (8.5-10.1); CHLORIDE 109 MEQ/L (98-107); CREATININE 1.22 MG/DL (0.60-1.30); GLOMERULAR FILTRATION RATE 63 ML/MIN (>89); GLUCOSE,RANDOM 128 MG/DL (74-106); LIPASE 91 U/L (73-393); MAGNESIUM 1.7 MG/DL (1.5-2.5); SODIUM (NA) 143 MEQ/L (136-145)
[2017-09-12 06:52] LABS: ALKALINE PHOSPHATASE 61 U/L (45-117); TOTAL BILIRUBIN ADULT 0.7 MG/DL (0.2-1.0); TROPONIN I LESS THAN 0.02 NG/ML (0.02-0.05)
--- NOTE | 2017-09-12 06:53 | PD ---
HPI . Fever Chief Complaint: Fever Time Seen by Provider: 05:59 Travel History International Travel<30 days: No Contact w/Intl Traveler<30days: No Traveled to known affect area: No History of Present Illness HPI 47-year-old male sent in from assisted living facility, history of CVA, bedbound , possible diagnosis of flu recently presents with having elevated temperature, altered mental status, tachycardic and weak. EMS notes the patient had significant respiratory difficulties, administered albuterol neb was a treatments 3 and slight Medrol 125 mg IV push en route. Patient is awake alert and is able to offer history, corroborate the above PFSH Past Medical History Narrative Medical Past medical history reviewed Hx Anticoagulant Therapy: Yes (XARLETO) Arthritis: Yes Asthma: Yes Autoimmune Disease: No Anxiety: Yes Depression: Yes Heart Rhythm Problems: Yes (Heart attack in 2007) Cancer: No Cardiovascular Problems: Yes High Cholesterol: Yes Chemotherapy: No Chest Pain: Yes Congestive Heart Failure: Yes COPD: No Cerebrovascular Accident: Yes Coronary Artery Disease: Yes Diabetes: No Diminished Hearing: Yes Endocrine: No Gastrointestinal Disorders: Yes (history of nausea and vomiting) GERD: Yes Genitourinary: No Headaches: Yes (Headache twice a week) Hepatitis: No Hiatal Hernia: Yes Hypertension: Yes Immune Disorder: No Implanted Vascular Access Dvce: Yes Kidney Stones: No Musculoskeletal: Yes Neurologic: Yes Psychiatric: Yes Reproductive: No Respiratory: Yes Immunizations Current: Yes Migraines: No Myocardial Infarction: Yes (APR 2008) Radiation Therapy: No Renal Failure: No Seizures: No Sickle Cell Disease: No Sleep Apnea: No Thyroid Disease: No Ulcer: No Past Surgical History Abdominal Surgery: Yes (APPENDECTOMY) AICD: Yes Appendectomy: Yes Arteriovenous Shunt: No Cardiac Surgery: Yes (CABG X 3 IN 2007, AICD PLACEMENT IN AUG 2008) Coronary Artery Bypass Graft: Yes (TRIPLE 04/26) Ear Surgery: Yes (tubes placed bilaterally when a child) Eye Surgery: No Genitourinary Surgery: No Gynecologic Surgery: No (n/a) Insulin Pump: No Joint Replacement: Yes (LEFT HIP REPLACEMENT) Neurologic Surgery: No Oral Surgery: Yes (TONSILLECTOMY) Pacemaker: Yes ( [employer]enson) Thoracic Surgery: Yes Tonsillectomy: Yes Tympanostomy Tube: Yes Other Surgery: Yes (TONSILLECTOMY) Social History Alcohol Use: No Tobacco Use: No Substance Use: No Allergies-Medications (Allergen,Severity, Reaction): Coded Allergies: No Known Allergies (Unverified Allergy, Unknown, 09/12/17) Reported Meds & Prescriptions Reported Meds & Active Scripts Active Ativan (Lorazepam) 0.5 Mg Tab 0.5 Mg PO Q12HR PRN Acetaminophen-Codeine 300-30 mg Tab 1 Tab PO Q8HR PRN DO NOT USE THIS MEDICINE IF YOU WILL DRIVE A CAR OR USE A MACHINE,ONLY USE IT WHEN RESTING AT HOME. Reported Omeprazole 20 Mg Tab 20 Mg PO DAILY Zoloft (Sertraline HCl) 50 Mg Tab 75 Mg PO DAILY BRAND MEDICALLY NECESSARY Xarelto (Rivaroxaban) 20 Mg Tab 20 Mg PO DAILY Milk of Magnesia Liq (Magnesium Hydroxide) 400 Mg/5 Ml Susp 30 Ml PO DAILY PRN Metamucil Powder (Psyllium Seed (with Sugar)) 575 Gm Powder 1 Pkt PO DAILY PRN Melatonin 3 Mg Tab 3 Mg PO HS Meclizine (Meclizine HCl) 25 Mg Tab 25 Mg PO TID PRN Lisinopril 10 Mg Tab 10 Mg PO DAILY Lipitor (Atorvastatin Calcium) 40 Mg Tab 40 Mg PO HS Neurontin (Gabapentin) 100 Mg Cap 100 Mg PO BID PRN Fenofibrate 54 Mg Tab 54 Mg PO DAILY Ecotrin Low Strength (Aspirin) 81 Mg Tabdr 81 Mg PO DAILY Narrative Medication Allergies and medications reviewed Review of Systems ROS Limitations: Clinical Condition General / Constitutional: Positive: Fever Respiratory: Positive: Shortness of Breath Physical Exam Exam Limitations: Clinical Condition Narrative GENERAL: Patient is awake alert, in moderate distress, tachypneic SKIN: Warm and dry. Skin is flushed with mottling of right upper extremity, possibly chronic HEAD: Atraumatic. Normocephalic. EYES: Pupils equal and round. No scleral icterus. No injection or drainage. ENT: No nasal bleeding or discharge. Mucous membranes pink and moist. NECK: Trachea midline. No JVD. Supple CARDIOVASCULAR: Tachycardia regular no murmurs appreciated difficult exam RESPIRATORY: Wheezing heard bilaterally, tachypnea GASTROINTESTINAL: Abdomen soft, non-tender, nondistended. Hepatic and splenic margins not palpable. MUSCULOSKELETAL: Cyanosis/mottling right upper extremity, again possibly chronic , edema lower extremities. NEUROLOGICAL: Awake and alert. Weakness bilateral with decreased movements, chronic changes secondary to multiple profound CVA PSYCHIATRIC: Denies suicidal ideations Data Data Last Documented VS Vital Signs Date Time Temp Pulse Resp B/P (MAP) Pulse Ox O2 Delivery O2 Flow Rate FiO2 09/12/17 06:14 102.8 09/12/17 06:12 100 Nasal Cannula 2.00 09/12/17 06:00 114 18 141/87 (105) Orders Orders Sepsis Workup Initiated (09/12/17 ) Electrocardiogram (09/12/17 05:59) Complete Blood Count With Diff (09/12/17 05:59) Comprehensive Metabolic Panel (09/12/17 05:59) Prothrombin Time / Inr (Pt) (09/12/17 05:59) Act Partial Throm Time (Ptt) (09/12/17 05:59) Lactic Acid Sepsis Protocol (09/12/17 05:59) Magnesium (Mg) (09/12/17 05:59) Lipase (09/12/17 05:59) Troponin I (09/12/17 05:59) Urinalysis - C+S If Indicated (09/12/17 05:59) Blood Culture (09/12/17 05:59) Legionella Urinary Antigen (09/12/17 05:59) Chest, Single Ap (09/12/17 05:59) Blood Glucose (09/12/17 05:59) Ecg Monitoring (09/12/17 05:59) Iv Access Insert/Monitor (09/12/17 05:59) Oximetry (09/12/17 05:59) Oxygen Administration (09/12/17 05:59) Piperacil-Tazo 4.5 Gm Premix (Zosyn 4.5 (09/12/17 06:00) Vancomycin Inj (Vancomycin Inj) (09/12/17 06:00) Acetaminophen Supp (Tylenol Supp) (09/12/17 06:15) Influenzae A/B Antigen (09/12/17 06:28) Labs Laboratory Tests Test 09/12/17 06:00 White Blood Count 12.7 TH/MM3 Red Blood Count 4.51 MIL/MM3 Hemoglobin 13.5 GM/DL Hematocrit 40.4 % Mean Corpuscular Volume 89.5 FL Mean Corpuscular Hemoglobin 29.9 PG Mean Corpuscular Hemoglobin Concent 33.4 % Red Cell Distribution Width 14.0 % Platelet Count 216 TH/MM3 Mean Platelet Volume 8.6 FL Neutrophils (%) (Auto) 74.4 % Lymphocytes (%) (Auto) 15.4 % Monocytes (%) (Auto) 6.7 % Eosinophils (%) (Auto) 3.1 % Basophils (%) (Auto) 0.4 % Neutrophils # (Auto) 9.4 TH/MM3 Lymphocytes # (Auto) 2.0 TH/MM3 Monocytes # (Auto) 0.8 TH/MM3 Eosinophils # (Auto) 0.4 TH/MM3 Basophils # (Auto) 0.1 TH/MM3 CBC Comment DIFF FINAL Differential Comment Prothrombin Time 12.3 SEC Prothromb Time International Ratio 1.2 RATIO Activated Partial Thromboplast Time 26.8 SEC Lactic Acid Level 2.3 mmol/L MDM Medical Decision Making Medical Screen Exam Complete: Yes Emergency Medical Condition: Yes Medical Record Reviewed: Yes Differential Diagnosis Sepsis, pneumonia, influenza, bronchitis Narrative Course Patient started on sepsis protocol at presentation with the exception of 30 cc per KG fluid bolus. Patient is tachycardic and febrile however patient's blood pressure is normal. Patient has a history of congestive heart failure with edema bilateral lower extremities.. Patient received 500 cc IV fluid on route. Patient pink culture presentation, vancomycin and Zosyn and administered after perusal patient's custodial chart which documented no known drug allergies. All laboratory examinations pending Chest x-ray flattened diaphragms poor inspiratory effort, no gross infiltrate seen. Cardiomegaly noted Case signed out to oncoming ED attending pending laboratory examinations, and reevaluation of patient.. Possible ICU admission Diagnosis Primary Impression: Sepsis Qualified Codes: A41.9 - Sepsis, unspecified organism Admitting Information Admitting Physician Requests: Admit José Manuel Damian MD Sep 12, 2017 06:53
[2017-09-12] MEDS ORDERED: SODIUM CHLORIDE 0.9% FLUSH 10 ML FLUSH IV FLUSH PRN (08:00)
[2017-09-12] MEDS ORDERED: BISACODYL 10 MG SUPP RECTAL PRN (08:00)
[2017-09-12] MEDS ORDERED: LACTULOSE SYRUP 20 GM/30 ML CUP PO PRN (08:00)
[2017-09-12] MEDS ORDERED: NALOXONE HCL 0.4 MG/ML AMP IV PUSH PRN (08:00)
[2017-09-12] MEDS ORDERED: ONDANSETRON HCL 4 MG/2 ML VIAL IVP PRN (08:00)
[2017-09-12] MEDS ORDERED: ACETAMINOPHEN 325 MG TAB PO PRN (08:00)
[2017-09-12] MEDS ORDERED: MAGNESIUM HYDROXIDE SUSP 30 ML CUP PO PRN (08:00)
[2017-09-12] MEDS ORDERED: SENNOSIDES 8.6 MG TAB PO PRN (08:00)
[2017-09-12] MEDS: SODIUM CHLOR 0.9% 1000 ML INJ 1,000 ML IV SCH ×2 (08:29→23:47)
[2017-09-12] MEDS: DOCUSATE SODIUM 50 MG/SENNA 8.6 MG TAB PO SCH ×2 (08:29→20:41)
[2017-09-12] MEDS: SODIUM CHLORIDE 0.9% FLUSH 10 ML FLUSH IV FLUSH SCH ×2 (08:29→20:42)
[2017-09-12 09:39] LABS: BILIRUBIN, URINE NEG (NEG); BLOOD, URINE NEG (NEG); GLUCOSE,URINE NEG (NEG); KETONE, URINE NEG (NEG); NITRITE,URINE NEG (NEG); PH, URINE 5.5 (5.0-8.5); SQUAMOUS EPITHELIAL CELL URINE <1 /hpf (0-5); URINE COLOR YELLOW (YELLW/STRAW); URINE LEUKOCYTE ESTERASE NEG (NEG)
--- NOTE | 2017-09-12 12:05 | HHI.HP ---
[facility] Unknown Admission Diagnosis sepsis, Diagnoses: Travel History International Travel<30 Days: No Contact w/Intl Traveler <30 Da: No Traveled to Known Affected Are: No History of Present Illness Patient is a 47-year-old male who is bedbound with past medical history of GI bleed, PE, CAD, HTN, hyperlipidemia, CVA, and currently living in an assisted living facility presented to the emergency room with complaints of fevers, chills and body aches for one day. Patient tells me he hasn't been around sick contacts. He does have a roommate wherever the roommate is not sick. He admits to a cough which began last night. He denied any nausea or vomiting. He did complain of abdominal pain that yesterday all over however he thinks there were muscle spasms. This has now resolved. He denies any diarrhea or constipation, he denies any burning with urination. Currently he does not feel well, states he feels tired and weak. He would like to drink and eat something. He states yesterday he only had chicken broth as his appetite decreased. Review of Systems Except as stated in HPI: all other systems reviewed are Neg Past Family Social History Past Medical History bedbound with past medical history of GI bleed, PE, CAD, HTN, hyperlipidemia, CVA Past Surgical History CABG 3, pacemaker placement, left hip and ankle surgery, tonsillectomy, ear tubes Reported Medications Reported Meds & Active Scripts Active Ativan (Lorazepam) 0.5 Mg Tab 0.5 Mg PO Q12HR PRN Acetaminophen-Codeine 300-30 mg Tab 1 Tab PO Q8HR PRN DO NOT USE THIS MEDICINE IF YOU WILL DRIVE A CAR OR USE A MACHINE,ONLY USE IT WHEN RESTING AT HOME. Reported Omeprazole 20 Mg Tab 20 Mg PO DAILY Zoloft (Sertraline HCl) 50 Mg Tab 75 Mg PO DAILY BRAND MEDICALLY NECESSARY Xarelto (Rivaroxaban) 20 Mg Tab 20 Mg PO DAILY Milk of Magnesia Liq (Magnesium Hydroxide) 400 Mg/5 Ml Susp 30 Ml PO DAILY PRN Metamucil Powder (Psyllium Seed (with Sugar)) 575 Gm Powder 1 Pkt PO DAILY PRN Melatonin 3 Mg Tab 3 Mg PO HS Meclizine (Meclizine HCl) 25 Mg Tab 25 Mg PO TID PRN Lisinopril 10 Mg Tab 10 Mg PO DAILY Lipitor (Atorvastatin Calcium) 40 Mg Tab 40 Mg PO HS Neurontin (Gabapentin) 100 Mg Cap 100 Mg PO BID PRN Fenofibrate 54 Mg Tab 54 Mg PO DAILY Ecotrin Low Strength (Aspirin) 81 Mg Tabdr 81 Mg PO DAILY Allergies: Coded Allergies: No Known Allergies (Unverified Allergy, Unknown, 09/12/17) Family History Father at the age of 48 of an GA, mother from Alzheimer' s disease. Social History Quit smoking a long time ago then started back then quit 3 years ago. Denies any alcohol or illegal drug use. Physical Exam Vital Signs Vital Signs Date Time Temp Pulse Resp B/P (MAP) Pulse Ox O2 Delivery O2 Flow Rate FiO2 09/12/17 10:58 80 18 99/64 (76) 95 Nasal Cannula 2.00 09/12/17 09:00 89 22 120/71 (87) 96 Nasal Cannula 2.00 09/12/17 06:14 102.8 09/12/17 06:12 100 Nasal Cannula 2.00 09/12/17 06:09 99 Nasal Cannula 2.00 09/12/17 06:00 114 18 141/87 (105) 97 Physical Exam GENERAL: This is a well-nourished, well-developed patient, laying in bed, appears tired. SKIN: No rashes, Cool and dry. HEAD: Atraumatic. Normocephalic. No temporal or scalp tenderness. EYES: Pupils equal round and reactive. Extraocular motions intact. ENT: Nose without drainage. Throat without erythema, tonsillar hypertrophy or exudate however mucous membranes are very dry. Airways patent. NECK: Trachea midline. CARDIOVASCULAR: Regular rate and rhythm without murmurs RESPIRATORY: Lungs appear clear to auscultation, no wheezing or arousals. GASTROINTESTINAL: Abdomen soft, non-tender, nondistended. No guarding. MUSCULOSKELETAL: Extremities without edema. He is able to move his lower extremities against gravity however he cannot move them passed that. He is able to move his upper extremities with no difficulty. NEUROLOGICAL: Awake and alert. Normal speech but does have to positive thing before answering my questions. Laboratory Laboratory Tests Test 09/12/17 06:00 09/12/17 06:40 09/12/17 08:45 White Blood Count 12.7 Red Blood Count 4.51 Hemoglobin 13.5 Hematocrit 40.4 Mean Corpuscular Volume 89.5 Mean Corpuscular Hemoglobin 29.9 Mean Corpuscular Hemoglobin Concent 33.4 Red Cell Distribution Width 14.0 Platelet Count 216 Mean Platelet Volume 8.6 Neutrophils (%) (Auto) 74.4 Lymphocytes (%) (Auto) 15.4 Monocytes (%) (Auto) 6.7 Eosinophils (%) (Auto) 3.1 Basophils (%) (Auto) 0.4 Neutrophils # (Auto) 9.4 Lymphocytes # (Auto) 2.0 Monocytes # (Auto) 0.8 Eosinophils # (Auto) 0.4 Basophils # (Auto) 0.1 CBC Comment DIFF FINAL Differential Comment Prothrombin Time 12.3 Prothromb Time International Ratio 1.2 Activated Partial Thromboplast Time 26.8 Blood Urea Nitrogen 12 Creatinine 1.22 Random Glucose 128 Total Protein 7.0 Albumin 3.5 Calcium Level 7.8 Magnesium Level 1.7 Alkaline Phosphatase 61 Aspartate Amino Transf (AST/SGOT) 16 Alanine Aminotransferase (ALT/SGPT) 19 Total Bilirubin 0.7 Sodium Level 143 Potassium Level 3.5 Chloride Level 109 Carbon Dioxide Level 26.8 Anion Gap 7 Estimat Glomerular Filtration Rate 63 Lactic Acid Level 2.3 2.4 Troponin I LESS THAN 0.02 Lipase 91 Urine Color YELLOW Urine Turbidity CLEAR Urine pH 5.5 Urine Specific [place] 1.014 Urine Protein NEG Urine Glucose (UA) NEG Urine Ketones NEG Urine Occult Blood NEG Urine Nitrite NEG Urine Bilirubin NEG Urine Urobilinogen LESS THAN 2.0 Urine Leukocyte Esterase NEG Urine RBC 1 Urine WBC LESS THAN 1 Urine Squamous Epithelial Cells <1 Microscopic Urinalysis Comment CATH-CULT NOT IND Date/Time Source Procedure Growth Status 09/12/17 06:00 Blood Peripheral Aerobic Blood Culture Pending Received 09/12/17 06:00 Blood Peripheral Anaerobic Blood Culture Pending Received 09/12/17 07:00 Nasal Washing Influenza Types A,B Antigen (TILA) - Final NEGATIVE FOR FLU A AND B ANTIGEN.... Complete 09/12/17 06:40 Urine Catheterized Urine Legionella Antigen Pending Received Result Diagram: 09/12/17 0600 09/12/17 0600 Imaging Last Impressions Chest X-Ray 09/12/17 0559 Signed Impressions: Service Date/Time: August 06:17 - CONCLUSION: No infiltrates seen. MD Libra Cartwright VTE Risk Assessment Libra VTE Risk Assessment: Mod/High Risk (score >= 2) Femirini Risk Assessment Model Point Value = 1 Point Value = 2 Point Value = 3 Point Value = 5 Age 41-60 Minor surgery BMI > 25 kg/m2 Swollen legs Varicose veins or History of unexplained or recurrent spontaneous Oral contraceptives or hormone replacement Sepsis (< 1 month) Serious lung disease, including pneumonia (< 1 month) Abnormal pulmonary function Acute myocardial infarction Congestive heart failure (< 1 month) History of inflammatory bowel disease Medical patient at bed rest Age 61-74 Arthroscopic surgery Major open surgery (> 45 min) Laparoscopic surgery (> 45 min) Malignancy Confined to bed (> 72 hours) Immobilizing plaster cast Central venous access Age >= 75 History of VTE Family history of VTE Factor V Leiden Prothrombin [id number] Lupus anticoagulant Anticardiolipin antibodies Elevated serum homocysteine Heparin-induced thrombocytopenia Other congenital or acquired thrombophilia Stroke (< 1 month) Elective arthroplasty Hip, pelvis, or leg fracture Acute spinal cord injury (< 1 month) Prophylaxis Regimen Total Risk Factor Score Risk Level Prophylaxis Regimen 0-1 Low Early ambulation 2 Moderate Order ONE of the following: *Sequential Compression Device (SCD) *Heparin 5000 units SQ BID 3-4 Higher Order ONE of the following medications: *Heparin 5000 units SQ TID *Enoxaparin/Lovenox 40 mg SQ daily (WT < 150 kg, CrCl > 30 mL/min) *Enoxaparin/Lovenox 30 mg SQ daily (WT < 150 kg, CrCl > 10-29 mL/min) *Enoxaparin/Lovenox 30 mg SQ BID (WT < 150 kg, CrCl > 30 mL/min) AND/OR *Sequential Compression Device (SCD) 5 or more Highest Order ONE of the following medications: *Heparin 5000 units SQ TID (Preferred with Epidurals) *Enoxaparin/Lovenox 40 mg SQ daily (WT < 150 kg, CrCl > 30 mL/min) *Enoxaparin/Lovenox 30 mg SQ daily (WT < 150 kg, CrCl > 10-29 mL/min) *Enoxaparin/Lovenox 30 mg SQ BID (WT < 150 kg, CrCl > 30 mL/min) AND *Sequential Compression Device (SCD) Assessment and Plan Assessment and Plan SIRS w possible sepsis: Patient presents with fevers 102.8, tachycardia at 114, and leukocytosis at 12.7. Source currently is unknown however patient presents with cough, body aches, fevers and chills. Flu is negative in ED. The ER documentation patient on arrival had tachypnea and wheezing on exam. Patient received a dose of vancomycin and Zosyn. Chest x-ray reviewed by me although read as neg, it does appear that there might be some infiltrates on the left side which might be contributing to pt's symptoms. On exam I didn't auscultate and crackles or wheezing however pt is having cough and fevers and pt leaves in an [facility]. Will treat for now for possible facility acquired PNA w zosyn/ azithromycin. Repeat Chest x-ray in AM. Encourage use of IS q1hr while awake. Blood cx pending. U/A reviewed and neg. lactic acid 2.4. Repeat in AM. could also be from dehydration as pt have very dry mucous membranes history of GI bleed: back in june/july of 2017. 07/18/17 EGD found Severe Esophagitis distal esophagus biopsy, Gastritis Antrum Biopsy, Duodenitis , Hiatal hernia . Pt was cleared by GI to resume xarelto. No new episodes per pt. Hb 13.5 Hx of PE: on xarelto which I will resume CAD: s/p CABG x 3. stable HTN: resume home meds Hyperlipidemia: stable- resume home meds CVA: stable. Consult PT as pt is bedbound DVT proph: on xarelto Code Status full Discussed Condition With ER physician, Patient Mita Haney MD Sep 12, 2017 12:05
[2017-09-12] MEDS ORDERED: ENALAPRILAT 1.25 MG/ML VIAL IV PUSH PRN (12:30)
[2017-09-12] MEDS ORDERED: LORazepam 0.5 MG TAB PO PRN (12:30)
[2017-09-12] MEDS ORDERED: ACETAMINOPHEN/CODEINE 300 MG/30 MG TAB PO PRN (12:30)
[2017-09-12] MEDS ORDERED: MECLIZINE HCL 25 MG TAB PO PRN (12:30)
[2017-09-12] MEDS ORDERED: GABAPENTIN 100 MG CAP PO PRN (12:30)
--- NOTE | 2017-09-12 12:53 | RADRPT ---
EXAM DATE/TIME: 09/12/2017 12:36 [place] COMPARISON: CHEST SINGLE AP, September 12, 2017, 6:17. INDICATIONS : Infiltrate. MEDICAL HISTORY : Cardiovascular disease. Hypertension hiatal hernia, CVA SURGICAL HISTORY : Pacemaker. Appendectomy. CABG. ENCOUNTER: Initial ACUITY: 1 day PAIN SCORE: Non-responsive. LOCATION: Bilateral chest FINDINGS: The lungs are clear without infiltrate, nodule, or mass. There is no appreciable pleural effusion fo r technique. Slight cardiomegaly has not changed. Left subclavian transvenous pacer wires are present with tips in the right atrium and right ventricle. There is evidence for prior median sternotomy. Th ere is mild wedging of lower thoracic vertebrae most likely osteoporotic. IMPRESSION: No acute cardiopulmonary disease. Efrain Pitts MD on September 12, 2017 at 12:49 Board Certified Radiologist. This report was verified electronically.
[2017-09-12] MEDS: AZITHROMYCIN 250 MG TAB PO SCH (13:13)
[2017-09-12] MEDS ORDERED: PILL SPLITTER OTHER PRN (13:15)
[2017-09-12] MEDS: PIPERACIL-TAZO 4.5 GM PREMIX 100 ML IV SCH ×2 (15:50→20:41)
[2017-09-12] MEDS: ATORVASTATIN 40 MG TAB PO SCH (20:41)
[2017-09-12] MEDS: MELATONIN 5 MG TAB PO SCH (20:41)
[2017-09-12] MEDS: GABAPENTIN 100 MG CAP PO SCH (20:50)
[2017-09-12] MEDS: RESP: ALBUTEROL 2.5 MG/IPRATROPIUM 0.5 MG NEB (PRN) NEB (20:59)
--- NOTE | 2017-09-12 23:26 | EKG ---
Date Performed: 09/12/2017 Time Performed: 06:04:29 PTAGE: 47 years EKG: SINUS TACHYCARDIA POSSIBLE ANTERIOR MYOCARDIAL INFARCTION INFERIOR MYOCARDIAL INFARCTION MO DERATE T-WAVE ABNORMALITY, CONSIDER LATERAL ISCHEMIA ABNORMAL ECG PREVIOUS TRACING : 10/01/2015 19.32 Since the prior tracing, there has been no significant dorantes DOCTOR: Hammad Salmeron Interpretating Date/Time 09/12/2017 23:25:44
[2017-09-13] VITALS (12 sets, daily range): BP systolic 96–121; BP diastolic 51–70; PULSE 58–87; RESP 20–22; TEMP 97.6–98.8; O2SAT 95–99
[2017-09-13] MEDS: PIPERACIL-TAZO 4.5 GM PREMIX 100 ML IV SCH ×4 (01:44→20:28)
[2017-09-13 07:42] LABS: AUTOMATED NEUTROPHIL # 6.7 TH/MM3 (1.8-7.7); BASOPHIL % 0.4 % (0.0-2.0); EOSINOPHIL % 0.5 % (0.0-4.0); HEMATOCRIT 34.9 % (39.0-51.0); HEMOGLOBIN 11.6 GM/DL (13.0-17.0); LYMPH % 16.8 % (9.0-44.0); LYMPHOCYTE # 1.5 TH/MM3 (1.0-4.8); MEAN CELL VOLUME 89.8 FL (80.0-100.0); MEAN CORPUSCULAR HEMOGLOBIN 29.7 PG (27.0-34.0); MEAN CORPUSCULAR HGB CONC 33.1 % (32.0-36.0); MEAN PLATELET VOLUME 8.6 FL (7.0-11.0); MONO % 6.6 % (0.0-8.0); MONOCYTE # 0.6 TH/MM3 (0-0.9); NEUT % 75.7 % (16.0-70.0); PLATELET COUNT 198 TH/MM3 (150-450); RED BLOOD COUNT 3.89 MIL/MM3 (4.50-5.90); RED CELL DISTRIBUTION WIDTH 13.9 % (11.6-17.2); WHITE BLOOD COUNT 8.8 TH/MM3 (4.0-11.0)
[2017-09-13] MEDS: SODIUM CHLORIDE 0.9% FLUSH 10 ML FLUSH IV FLUSH SCH ×2 (08:10→20:36)
[2017-09-13] MEDS: GABAPENTIN 100 MG CAP PO SCH ×2 (08:34→20:32)
[2017-09-13] MEDS: RIVAROXABAN 20 MG TAB PO SCH (08:34)
[2017-09-13] MEDS: FENOFIBRATE 48 MG TAB PO SCH (08:34)
[2017-09-13] MEDS: ASPIRIN EC 81 MG TABEC PO SCH (08:34)
[2017-09-13] MEDS: SERTRALINE HCL 50 MG TAB PO SCH (08:34)
[2017-09-13] MEDS: SODIUM CHLOR 0.9% 1000 ML INJ 1,000 ML IV SCH (08:35)
[2017-09-13] MEDS: PANTOPRAZOLE SOD 20 MG DELAYED RELEASE TAB PO SCH (08:35)
[2017-09-13] MEDS: DOCUSATE SODIUM 50 MG/SENNA 8.6 MG TAB PO SCH ×2 (08:35→20:33)
[2017-09-13] MEDS: LISINOPRIL 10 MG TAB PO SCH (08:35)
[2017-09-13 08:40] LABS: BICARBONATE 28.5 MEQ/L (21.0-32.0); CALCIUM 8.2 MG/DL (8.5-10.1); CREATININE 1.31 MG/DL (0.60-1.30)
--- NOTE | 2017-09-13 09:00 | HHI.PR ---
Subjective Remarks This is a pleasant 47 y/o male who is bedbound with history of GI bleed, PE, CAD , Hypertension, Hyperlipidemia, CVA, living in an [facility], presented to the emergency room with complaints of fevers, chills and body aches for one day. Patient tells me he hasn't been around sick contacts. Seen in his bedroom in the presence of nurse Miss Trujillo, and his Brother in law Mr. Mg Lee, his Leukocytosis improved to 8.8 and no signs of infection, afebrile, continue antibiotics by now, Removed Gutierrez cath. Objective Vital Signs Date Time Temp Pulse Resp B/P (MAP) Pulse Ox O2 Delivery O2 Flow Rate FiO2 09/13/17 08:01 97.7 58 22 105/51 (69) 99 09/13/17 04:00 60 09/13/17 03:26 98.1 60 20 97/53 (68) 96 09/13/17 00:00 64 09/13/17 00:00 97.6 60 21 102/58 (73) 95 09/12/17 21:02 96 Nasal Cannula 2.00 09/12/17 20:00 98.3 63 19 103/56 (72) 94 09/12/17 20:00 70 09/12/17 16:34 97.1 79 18 117/63 (81) 97 09/12/17 14:01 09/12/17 12:14 74 20 104/63 (77) 97 Nasal Cannula 2.00 09/12/17 10:58 99.1 80 18 99/64 (76) 95 Nasal Cannula 2.00 09/12/17 09:00 89 22 120/71 (87) 96 Nasal Cannula 2.00 I/O 09/12/17 09/12/17 09/12/17 09/13/17 09/13/17 09/13/17 07:00 15:00 23:00 07:00 15:00 23:00 Intake Total 100 ml 200 ml 100 ml 240 ml Output Total 500 ml 1800 ml Balance 100 ml -300 ml 100 ml -1560 ml Intake Oral 240 ml IV Total 100 ml 200 ml 100 ml Output Urine Total 500 ml 1800 ml # Voids 1 # Bowel Movements 0 Result Diagram: 09/13/1770409/13/17704 Imaging Last Impressions Chest X-Ray 09/12/17 0559 Signed Impressions: Service Date/Time: August 06:17 - CONCLUSION: No infiltrates seen. Erick Medina MD Procedures None Other Results Laboratory Tests Test 09/12/17 06:00 09/12/17 06:40 09/13/17 07:05 Prothrombin Time 12.3 SEC Prothromb Time International Ratio 1.2 RATIO Activated Partial Thromboplast Time 26.8 SEC Blood Urea Nitrogen 12 MG/DL 16 MG/DL Creatinine 1.22 MG/DL 1.31 MG/DL Random Glucose 128 MG/DL 108 MG/DL Total Protein 7.0 GM/DL Albumin 3.5 GM/DL Calcium Level 7.8 MG/DL 8.2 MG/DL Magnesium Level 1.7 MG/DL Alkaline Phosphatase 61 U/L Aspartate Amino Transf (AST/SGOT) 16 U/L Alanine Aminotransferase (ALT/SGPT) 19 U/L Total Bilirubin 0.7 MG/DL Sodium Level 143 MEQ/L 146 MEQ/L Potassium Level 3.5 MEQ/L 3.8 MEQ/L Chloride Level 109 MEQ/L 113 MEQ/L Carbon Dioxide Level 26.8 MEQ/L 28.5 MEQ/L Troponin I LESS THAN 0.02 NG/ML Lipase 91 U/L Urine Color YELLOW Urine Turbidity CLEAR Urine pH 5.5 Urine Specific [place] 1.014 Urine Protein NEG mg/dL Urine Glucose (UA) NEG mg/dL Urine Ketones NEG mg/dL Urine Occult Blood NEG Urine Nitrite NEG Urine Bilirubin NEG Urine Urobilinogen LESS THAN 2.0 MG/DL Urine Leukocyte Esterase NEG Urine RBC 1 /hpf Urine WBC LESS THAN 1 /hpf Urine Squamous Epithelial Cells <1 /hpf Microscopic Urinalysis Comment CATH-CULT NOT IND White Blood Count 8.8 TH/MM3 Red Blood Count 3.89 MIL/MM3 Hemoglobin 11.6 GM/DL Hematocrit 34.9 % Mean Corpuscular Volume 89.8 FL Mean Corpuscular Hemoglobin 29.7 PG Mean Corpuscular Hemoglobin Concent 33.1 % Red Cell Distribution Width 13.9 % Platelet Count 198 TH/MM3 Mean Platelet Volume 8.6 FL Neutrophils (%) (Auto) 75.7 % Lymphocytes (%) (Auto) 16.8 % Monocytes (%) (Auto) 6.6 % Eosinophils (%) (Auto) 0.5 % Basophils (%) (Auto) 0.4 % Neutrophils # (Auto) 6.7 TH/MM3 Lymphocytes # (Auto) 1.5 TH/MM3 Monocytes # (Auto) 0.6 TH/MM3 Eosinophils # (Auto) 0.0 TH/MM3 Basophils # (Auto) 0.0 TH/MM3 CBC Comment DIFF FINAL Differential Comment Anion Gap 5 MEQ/L Estimat Glomerular Filtration Rate 58 ML/MIN Lactic Acid Level 1.1 mmol/L Objective Remarks GENERAL: This is a well-nourished, No acute distress. SKIN: No rashes, Cool and dry. HEAD: Atraumatic. Normocephalic. No temporal or scalp tenderness. EYES: Pupils equal round and reactive. Extraocular motions intact. ENT: Nose without drainage. Throat without erythema. NECK: Trachea midline. CARDIOVASCULAR: Regular rate and rhythm without murmurs RESPIRATORY: Lungs appear clear to auscultation, no wheezing or arousals. GASTROINTESTINAL: Abdomen soft, non-tender, nondistended. No guarding. MUSCULOSKELETAL: Extremities without edema. He is able to move his lower extremities against gravity however he cannot move them passed that. He is able to move his upper extremities with no difficulty. NEUROLOGICAL: Awake and alert. Medications and IVs Current Medications Medications (Trade) Dose Ordered Sig/Kathleen Route Start Time Stop Time Status Last Admin Sodium Chloride 1,000 ml @ 75 mls/hr [id number] IV 09/12/17 07:54 09/13/17 08:35 (NS Flush) 2 ml UNSCH PRN IV FLUSH 09/12/17 08:00 (NS Flush) 2 ml BID IV FLUSH 09/12/17 09:00 09/13/17 08:10 (Tylenol) 650 mg Q4H PRN PO 09/12/17 08:00 (Zofran Inj) 4 mg Q6H PRN IVP 09/12/17 08:00 (Narcan Inj) 0.4 mg UNSCH PRN IV PUSH 09/12/17 08:00 (Casandra-Colace) 1 tab BID PO 09/12/17 09:00 09/13/17 08:35 (Milk Of Magnesia Liq) 30 ml Q12H PRN PO 09/12/17 08:00 (Senokot) 17.2 mg Q12H PRN PO 09/12/17 08:00 (Dulcolax Supp) 10 mg DAILY PRN RECTAL 09/12/17 08:00 (Lactulose Liq) 30 ml DAILY PRN PO 09/12/17 08:00 (Duoneb Neb) 1 ampule Q6HR NEB PRN NEB 09/12/17 12:15 09/12/17 20:59 Piperacillin Sod/ Tazobactam Sod 100 ml @ 200 mls/hr Q6H IV 09/12/17 14:00 09/13/17 08:34 (Zithromax) 500 mg Q24H PO 09/12/17 13:00 09/12/17 13:13 (Tylenol-Codeine #3) 1 tab Q8HR PRN PO 09/12/17 12:30 (Ecotrin Ec) 81 mg DAILY PO 09/13/17 09:00 09/13/17 08:34 (Lipitor) 40 mg HS PO 09/12/17 21:00 09/12/17 20:41 (Prinivil) 10 mg DAILY PO 09/13/17 09:00 09/13/17 08:35 (Ativan) 0.5 mg Q12HR PRN PO 09/12/17 12:30 (Antivert) 25 mg TID PRN PO 09/12/17 12:30 (Xarelto) 20 mg DAILY PO 09/13/17 09:00 09/13/17 08:34 (Zoloft) 75 mg DAILY PO 09/13/17 09:00 09/13/17 08:34 (Tricor) 48 mg DAILY PO 09/13/17 09:00 09/13/17 08:34 (Melatonin) 2.5 mg HS PO 09/12/17 21:00 09/12/17 20:41 (Protonix) 20 mg DAILY PO 09/13/17 09:00 09/13/17 08:35 (Vasotec Inj) 1.25 mg Q6H PRN IV PUSH 09/12/17 12:30 (Pill Splitter) 1 ea UNSCH PRN OTHER 09/12/17 13:15 (Neurontin) 100 mg BID PO 09/12/17 21:00 09/13/17 08:34 A/P Assessment and Plan SIRS w possible sepsis: Patient presents with fevers 102.8, tachycardia at 114, and leukocytosis at 12.7. Source currently is unknown however patient presents with cough, body aches, fevers and chills. Flu is negative in ED. The ER documentation patient on arrival had tachypnea and wheezing on exam. Patient received a dose of vancomycin and Zosyn. Chest x-ray reviewed by me although read as neg, it does appear that there might be some infiltrates on the left side which might be contributing to pt's symptoms. On exam I didn't auscultate and crackles or wheezing however pt is having cough and fevers and pt leaves in an [facility]. Will treat for now for possible facility acquired PNA w zosyn/ azithromycin. Repeat Chest x-ray in AM. Encourage use of IS q1hr while awake. Blood cx pending. U/A reviewed and neg. lactic acid 2.4. Improved. His Fever Improved will follow at least for 48 hours if afebrile will discharge home off antibiotic. no signs of infection. history of GI bleed: back in June/July of 2017. 07/18/17 EGD found Severe Esophagitis distal esophagus biopsy, Gastritis Antrum Biopsy, Duodenitis , Hiatal hernia . Pt was cleared by GI to resume Xarelto. No new episodes per pt. Hb 13.5 Hx of PE: on Xarelto which I will resume CAD: s/p CABG x 3. stable HTN: Controlled. Hyperlipidemia: stable- resume home meds CVA: stable. Consult PT as pt is bedbound DVT Prophylaxis: on Xarelto Code Status full Discussed Condition With patient and nurse and his Brother in law. Discharge Planning Expected by tomorrow. Juve Comer MD Sep 13, 2017 09:00
[2017-09-13] MEDS: RESP: ALBUTEROL 2.5 MG/IPRATROPIUM 0.5 MG NEB (PRN) NEB ×2 (11:41→21:18)
[2017-09-13] MEDS: AZITHROMYCIN 250 MG TAB PO SCH (12:49)
[2017-09-13] MEDS: MELATONIN 5 MG TAB PO SCH (20:32)
[2017-09-13] MEDS: ATORVASTATIN 40 MG TAB PO SCH (20:32)
[2017-09-14] VITALS: BP 91/61; PULSE 78; RESP 20; TEMP 98.7; O2SAT 96
[2017-09-14] MEDS: PIPERACIL-TAZO 4.5 GM PREMIX 100 ML IV SCH ×3 (02:46→15:37)
[2017-09-14 03:42] VITALS: PULSE 62
[2017-09-14 04:00] VITALS: BP 98/58; PULSE 60; RESP 60; TEMP 98.1; O2SAT 98
[2017-09-14] MEDS: SODIUM CHLOR 0.9% 1000 ML INJ 1,000 ML IV SCH (04:05)
[2017-09-14 08:00] VITALS: BP 116/66; PULSE 63; PULSE 64; RESP 20; TEMP 97.8; O2SAT 96
[2017-09-14] MEDS: FENOFIBRATE 48 MG TAB PO SCH (09:01)
[2017-09-14] MEDS: GABAPENTIN 100 MG CAP PO SCH (09:02)
[2017-09-14] MEDS: LISINOPRIL 10 MG TAB PO SCH (09:02)
[2017-09-14] MEDS: RIVAROXABAN 20 MG TAB PO SCH (09:02)
[2017-09-14] MEDS: DOCUSATE SODIUM 50 MG/SENNA 8.6 MG TAB PO SCH (09:02)
[2017-09-14] MEDS: PANTOPRAZOLE SOD 20 MG DELAYED RELEASE TAB PO SCH (09:02)
[2017-09-14] MEDS: ASPIRIN EC 81 MG TABEC PO SCH (09:02)
[2017-09-14] MEDS: SERTRALINE HCL 50 MG TAB PO SCH (09:02)
[2017-09-14] MEDS: SODIUM CHLORIDE 0.9% FLUSH 10 ML FLUSH IV FLUSH SCH (09:03)
--- NOTE | 2017-09-14 09:16 | HHI.PR ---
Subjective Remarks This is a pleasant 47 y/o male who is bedbound with history of GI bleed, PE, CAD , Hypertension, Hyperlipidemia, CVA, living in an [facility], presented to the emergency room with complaints of fevers, chills and body aches for one day. Patient tells me he hasn't been around sick contacts. Seen in his bedroom in the presence of nurse Cassandra, and his Brother in law Mr. Mg Lee, his Leukocytosis improved to 8.8 and no signs of infection, afebrile, continue antibiotics by now, Removed Gutierrez cath. 09/14: Stable seen in his bedroom discussed on rounds with nurse, did not found site for infection, will handle off antibiotics, as per patient no Nausea, vomit or diarrhea he wants to return to his [facility], will discharge. this plan of care has already discussed yesterday with his Brother in law Mr. Mg Lee. Objective Vital Signs Date Time Temp Pulse Resp B/P (MAP) Pulse Ox O2 Delivery O2 Flow Rate FiO2 09/14/17 04:00 98.1 60 60 98/58 (71) 98 09/14/17 03:42 62 09/14/17 00:00 98.7 78 20 91/61 (71) 96 09/13/17 23:39 73 09/13/17 21:20 96 Nasal Cannula 2.00 09/13/17 20:00 98.8 82 20 121/70 (87) 97 09/13/17 20:00 74 09/13/17 16:08 97.9 69 20 110/62 (78) 99 09/13/17 16:00 70 09/13/17 12:08 67 09/13/17 12:07 98.7 87 20 96/54 (68) 96 I/O 09/13/17 09/13/17 09/13/17 09/14/17 09/14/17 09/14/17 07:00 15:00 23:00 07:00 15:00 23:00 Intake Total 240 ml 100 ml 240 ml Output Total 1800 ml 1250 ml 220 ml Balance -1560 ml 100 ml -1010 ml -220 ml Intake Oral 240 ml 240 ml IV Total 100 ml Output Urine Total 1800 ml 1250 ml 220 ml # Voids 2 # Bowel Movements 0 1 Result Diagram: 09/13/17 0705 09/13/17 0705 Imaging Last Impressions Chest X-Ray 09/12/17 0559 Signed Impressions: Service Date/Time: August 06:17 - CONCLUSION: No infiltrates seen. Erick Medina MD Procedures None Other Results Laboratory Tests Test 09/12/17 06:00 09/12/17 06:40 09/13/17 07:05 Prothrombin Time 12.3 SEC Prothromb Time International Ratio 1.2 RATIO Activated Partial Thromboplast Time 26.8 SEC Blood Urea Nitrogen 12 MG/DL 16 MG/DL Creatinine 1.22 MG/DL 1.31 MG/DL Random Glucose 128 MG/DL 108 MG/DL Total Protein 7.0 GM/DL Albumin 3.5 GM/DL Calcium Level 7.8 MG/DL 8.2 MG/DL Magnesium Level 1.7 MG/DL Alkaline Phosphatase 61 U/L Aspartate Amino Transf (AST/SGOT) 16 U/L Alanine Aminotransferase (ALT/SGPT) 19 U/L Total Bilirubin 0.7 MG/DL Sodium Level 143 MEQ/L 146 MEQ/L Potassium Level 3.5 MEQ/L 3.8 MEQ/L Chloride Level 109 MEQ/L 113 MEQ/L Carbon Dioxide Level 26.8 MEQ/L 28.5 MEQ/L Troponin I LESS THAN 0.02 NG/ML Lipase 91 U/L Urine Color YELLOW Urine Turbidity CLEAR Urine pH 5.5 Urine Specific [place] 1.014 Urine Protein NEG mg/dL Urine Glucose (UA) NEG mg/dL Urine Ketones NEG mg/dL Urine Occult Blood NEG Urine Nitrite NEG Urine Bilirubin NEG Urine Urobilinogen LESS THAN 2.0 MG/DL Urine Leukocyte Esterase NEG Urine RBC 1 /hpf Urine WBC LESS THAN 1 /hpf Urine Squamous Epithelial Cells <1 /hpf Microscopic Urinalysis Comment CATH-CULT NOT IND White Blood Count 8.8 TH/MM3 Red Blood Count 3.89 MIL/MM3 Hemoglobin 11.6 GM/DL Hematocrit 34.9 % Mean Corpuscular Volume 89.8 FL Mean Corpuscular Hemoglobin 29.7 PG Mean Corpuscular Hemoglobin Concent 33.1 % Red Cell Distribution Width 13.9 % Platelet Count 198 TH/MM3 Mean Platelet Volume 8.6 FL Neutrophils (%) (Auto) 75.7 % Lymphocytes (%) (Auto) 16.8 % Monocytes (%) (Auto) 6.6 % Eosinophils (%) (Auto) 0.5 % Basophils (%) (Auto) 0.4 % Neutrophils # (Auto) 6.7 TH/MM3 Lymphocytes # (Auto) 1.5 TH/MM3 Monocytes # (Auto) 0.6 TH/MM3 Eosinophils # (Auto) 0.0 TH/MM3 Basophils # (Auto) 0.0 TH/MM3 CBC Comment DIFF FINAL Differential Comment Anion Gap 5 MEQ/L Estimat Glomerular Filtration Rate 58 ML/MIN Lactic Acid Level 1.1 mmol/L Objective Remarks GENERAL: This is a well-nourished, No acute distress. SKIN: No rashes, Cool and dry. HEAD: Atraumatic. Normocephalic. No temporal or scalp tenderness. EYES: Pupils equal round and reactive. Extraocular motions intact. ENT: Nose without drainage. Throat without erythema. NECK: Trachea midline. CARDIOVASCULAR: Regular rate and rhythm without murmurs RESPIRATORY: Lungs appear clear to auscultation, no wheezing or arousals. GASTROINTESTINAL: Abdomen soft, non-tender, nondistended. No guarding. MUSCULOSKELETAL: Extremities without edema. NEUROLOGICAL: Awake and alert. Medications and IVs Current Medications Medications (Trade) Dose Ordered Sig/Kathleen Route Start Time Stop Time Status Last Admin Sodium Chloride 1,000 ml @ 75 mls/hr [id number] IV 09/12/17 07:54 09/14/17 04:05 (NS Flush) 2 ml UNSCH PRN IV FLUSH 09/12/17 08:00 (NS Flush) 2 ml BID IV FLUSH 09/12/17 09:00 09/14/17 09:03 (Tylenol) 650 mg Q4H PRN PO 09/12/17 08:00 (Zofran Inj) 4 mg Q6H PRN IVP 09/12/17 08:00 (Narcan Inj) 0.4 mg UNSCH PRN IV PUSH 09/12/17 08:00 (Casandra-Colace) 1 tab BID PO 09/12/17 09:00 09/14/17 09:02 (Milk Of Magnesia Liq) 30 ml Q12H PRN PO 09/12/17 08:00 (Senokot) 17.2 mg Q12H PRN PO 09/12/17 08:00 (Dulcolax Supp) 10 mg DAILY PRN RECTAL 09/12/17 08:00 (Lactulose Liq) 30 ml DAILY PRN PO 09/12/17 08:00 (Duoneb Neb) 1 ampule Q6HR NEB PRN NEB 09/12/17 12:15 09/13/17 21:18 Piperacillin Sod/ Tazobactam Sod 100 ml @ 200 mls/hr Q6H IV 09/12/17 14:00 09/14/17 09:01 (Zithromax) 500 mg Q24H PO 09/12/17 13:00 09/13/17 12:49 (Tylenol-Codeine #3) 1 tab Q8HR PRN PO 09/12/17 12:30 (Ecotrin Ec) 81 mg DAILY PO 09/13/17 09:00 09/14/17 09:02 (Lipitor) 40 mg HS PO 09/12/17 21:00 09/13/17 20:32 (Prinivil) 10 mg DAILY PO 09/13/17 09:00 09/14/17 09:02 (Ativan) 0.5 mg Q12HR PRN PO 09/12/17 12:30 (Antivert) 25 mg TID PRN PO 09/12/17 12:30 (Xarelto) 20 mg DAILY PO 09/13/17 09:00 09/14/17 09:02 (Zoloft) 75 mg DAILY PO 09/13/17 09:00 09/14/17 09:02 (Tricor) 48 mg DAILY PO 09/13/17 09:00 09/14/17 09:01 (Melatonin) 2.5 mg HS PO 09/12/17 21:00 09/13/17 20:32 (Protonix) 20 mg DAILY PO 09/13/17 09:00 09/14/17 09:02 (Vasotec Inj) 1.25 mg Q6H PRN IV PUSH 09/12/17 12:30 (Pill Splitter) 1 ea UNSCH PRN OTHER 09/12/17 13:15 (Neurontin) 100 mg BID PO 09/12/17 21:00 09/14/17 09:02 A/P Assessment and Plan SIRS w possible sepsis: Patient presents with fevers 102.8, tachycardia at 114, and leukocytosis at 12.7. Source currently is unknown however patient presents with cough, body aches, fevers and chills. Flu is negative in ED. The ER documentation patient on arrival had tachypnea and wheezing on exam. Patient received a dose of vancomycin and Zosyn. Chest x-ray reviewed by me although read as neg, it does appear that there might be some infiltrates on the left side which might be contributing to pt's symptoms. On exam I didn't auscultate and crackles or wheezing however pt is having cough and fevers and pt leaves in an [facility]. Will treat for now for possible facility acquired PNA w zosyn/ azithromycin. Repeat Chest x-ray in AM. Encourage use of IS q1hr while awake. Blood cx pending. U/A reviewed and neg. lactic acid 2.4. Improved. His Fever Improved will follow at least for 48 hours if afebrile will discharge home off antibiotic. no signs of infection. history of GI bleed: back in June/July of 2017. 07/18/17 EGD found Severe Esophagitis distal esophagus biopsy, Gastritis Antrum Biopsy, Duodenitis , Hiatal hernia . Pt was cleared by GI to resume Xarelto. No new episodes per pt. Hb 13.5 Hx of PE: on Xarelto which I will resume CAD: s/p CABG x 3. stable HTN: Controlled. Hyperlipidemia: stable- resume home meds CVA: stable. Consult PT as pt is bedbound DVT Prophylaxis: on Xarelto Code Status full Discussed Condition With patient and nurse Discharge Planning Discharge to [facility] no signs of infection at this time, afebrile, no leukocytosis. Juve Comer MD Sep 14, 2017 09:16
[2017-09-14] MEDS: RESP: ALBUTEROL 2.5 MG/IPRATROPIUM 0.5 MG NEB (PRN) NEB (10:04)
[2017-09-14 12:00] VITALS: BP 104/59; PULSE 71; RESP 20; TEMP 98.4; O2SAT 92
[2017-09-14 13:59] LABS: BICARBONATE 27.5 MEQ/L (21.0-32.0); CALCIUM 8.4 MG/DL (8.5-10.1); CREATININE 1.12 MG/DL (0.60-1.30)
--- NOTE | 2017-09-14 14:37 | HHI.DS ---
Discharge Summary Admission Date Sep 12, 2017 at 07:57 Discharge Date: Sep 14, 2017 Admitting Diagnosis sepsis, (1) Fever ICD Code: R50.9 - Fever, unspecified Diagnosis: Principal Procedures None Brief History - From Admission Patient is a 47-year-old male who is bedbound with past medical history of GI bleed, PE, CAD, HTN, hyperlipidemia, CVA, and currently living in an assisted living facility presented to the emergency room with complaints of fevers, chills and body aches for one day. Patient tells me he hasn't been around sick contacts. He does have a roommate wherever the roommate is not sick. He admits to a cough which began last night. He denied any nausea or vomiting. He did complain of abdominal pain that yesterday all over however he thinks there were muscle spasms. This has now resolved. He denies any diarrhea or constipation, he denies any burning with urination. Currently he does not feel well, states he feels tired and weak. He would like to drink and eat something. He states yesterday he only had chicken broth as his appetite decreased. CBC/BMP: 09/13/17 0705 09/14/17 1210 Significant Findings Laboratory Tests Test 09/12/17 06:00 09/12/17 06:40 09/12/17 08:45 09/13/17 07:05 White Blood Count 12.7 TH/MM3 (4.0-11.0) Neutrophils (%) (Auto) 74.4 % (16.0-70.0) 75.7 % (16.0-70.0) Neutrophils # (Auto) 9.4 TH/MM3 (1.8-7.7) Prothrombin Time 12.3 SEC (9.8-11.6) Random Glucose 128 MG/DL (74-106) 108 MG/DL (74-106) Calcium Level 7.8 MG/DL (8.5-10.1) 8.2 MG/DL (8.5-10.1) Chloride Level 109 MEQ/L (98-107) 113 MEQ/L (98-107) Estimat Glomerular Filtration Rate 63 ML/MIN (>89) 58 ML/MIN (>89) Lactic Acid Level 2.3 mmol/L (0.4-2.0) 2.4 mmol/L (0.4-2.0) Troponin I LESS THAN 0.02 NG/ML Red Blood Count 3.89 MIL/MM3 (4.50-5.90) Hemoglobin 11.6 GM/DL (13.0-17.0) Hematocrit 34.9 % (39.0-51.0) Creatinine 1.31 MG/DL (0.60-1.30) Sodium Level 146 MEQ/L (136-145) Test 09/14/17 12:10 Random Glucose 118 MG/DL (74-106) Calcium Level 8.4 MG/DL (8.5-10.1) Estimat Glomerular Filtration Rate 70 ML/MIN (>89) Imaging Last Impressions Chest X-Ray 09/12/17 0559 Signed Impressions: Service Date/Time: August 06:17 - CONCLUSION: No infiltrates seen. Erick Medina MD PE at Discharge GENERAL: This is a well-nourished, No acute distress. SKIN: No rashes, Cool and dry. HEAD: Atraumatic. Normocephalic. No temporal or scalp tenderness. EYES: Pupils equal round and reactive. Extraocular motions intact. ENT: Nose without drainage. Throat without erythema. NECK: Trachea midline. CARDIOVASCULAR: Regular rate and rhythm without murmurs RESPIRATORY: Lungs appear clear to auscultation, no wheezing or arousals. GASTROINTESTINAL: Abdomen soft, non-tender, nondistended. No guarding. MUSCULOSKELETAL: Extremities without edema. NEUROLOGICAL: Awake and alert. Hospital Course This is a pleasant 47 y/o male who is bedbound with history of GI bleed, PE, CAD , Hypertension, Hyperlipidemia, CVA, living in an [facility], presented to the emergency room with complaints of fevers, chills and body aches for one day. Patient tells me he hasn't been around sick contacts. Seen in his bedroom in the presence of nurse Miss Trujillo, and his Brother in law Mr. Mg Lee, his Leukocytosis improved to 8.8 and no signs of infection, afebrile, continue antibiotics by now, Removed Gutierrez cath. 1/27: Stable seen in his bedroom discussed on rounds with nurse, did not found site for infection, will handle off antibiotics, as per patient no Nausea, vomit or diarrhea he wants to return to his [facility], will discharge. this plan of care has already discussed yesterday with his Brother in law Mr. Mg Lee. Assessment and Plan SIRS ruled out sepsis: Patient presents with fevers 102.8, tachycardia at 114, and leukocytosis at 12.7. Source currently is unknown however patient presents with cough, body aches, fevers and chills. Flu is negative in ED. The ER documentation patient on arrival had tachypnea and wheezing on exam. Patient received a dose of vancomycin and Zosyn. Chest x-ray reviewed by me although read as neg, it does appear that there might be some infiltrates on the left side which might be contributing to pt's symptoms. On exam I didn't auscultate and crackles or wheezing however pt is having cough and fevers and pt leaves in an [facility]. Will treat for now for possible facility acquired PNA w zosyn/ azithromycin. Repeat Chest x-ray in AM was negative no infiltrates. . Encourage use of IS q1hr while awake. Blood cx pending. U/A reviewed and neg. lactic acid 2.4. Improved to 1.1 with IV fluids and antibiotics. His Fever Improved will follow at least for 48 hours if afebrile will discharge home off antibiotic. no signs of infection. blood cultures negative, no Influenza. history of GI bleed: back in June/July of 2017. 07/18/17 EGD found Severe Esophagitis distal esophagus biopsy, Gastritis Antrum Biopsy, Duodenitis , Hiatal hernia . Pt was cleared by GI to resume Xarelto. No new episodes per pt. Hb 13.5 Hx of PE: on Xarelto which I will resume CAD: s/p CABG x 3. stable HTN: Controlled. Hyperlipidemia: stable- resume home meds CVA: stable. Consult PT as pt is bedbound DVT Prophylaxis: on Xarelto Code Status full Discussed Condition With patient and nurse Discharge Planning Discharge to [facility] no signs of infection at this time, afebrile, no leukocytosis. Pt Condition on Discharge: Good Discharge Disposition: [facility] Discharge Time: <= 30 minutes Discharge Instructions DIET: Follow Instructions for: Heart Healthy Diet Activities you can perform: Regular-No Restrictions Juve Comer MD Sep 14, 2017 14:37
[2017-09-14] MEDS: AZITHROMYCIN 250 MG TAB PO SCH (15:36)
[2017-09-14 16:00] VITALS: BP 109/58; PULSE 70; RESP 20; TEMP 98.2; O2SAT 93
== END 2017-09-14 18:04 | DRG 864 ==
LOC: NEPE 05:56 → NEDA 07:57 → N04B 14:26
PROVIDERS: ADMIT Internal Medicine; ATTEND Internal Medicine
DX: R50.9 Fever, unspecified (principal); G82.20 Paraplegia, unspecified; I11.0 Hypertensive heart disease with heart failure; I50.9 Heart failure, unspecified; E86.0 Dehydration; D72.829 Elevated white blood cell count, unspecified; I25.2 Old myocardial infarction; I25.10 Atherosclerotic heart disease of native coronary artery without angina pectoris; K21.9 Gastro-esophageal reflux disease without esophagitis; I69.365 Other paralytic syndrome following cerebral infarction, bilateral; E78.5 Hyperlipidemia, unspecified; E78.00 Pure hypercholesterolemia, unspecified; J45.909 Unspecified asthma, uncomplicated; M19.90 Unspecified osteoarthritis, unspecified site; H91.90 Unspecified hearing loss, unspecified ear; F32.9 Major depressive disorder, single episode, unspecified; F41.9 Anxiety disorder, unspecified; Z74.01 Bed confinement status; Z79.01 Long term (current) use of anticoagulants; Z86.711 Personal history of pulmonary embolism; Z87.891 Personal history of nicotine dependence; Z95.810 Presence of automatic (implantable) cardiac defibrillator; Z95.1 Presence of aortocoronary bypass graft; Z96.642 Presence of left artificial hip joint
CPT/HCPCS: 51702; 71045; 71046; 80048; 80053; 81001; 83605; 83690; 83735; 84484; 85025; 85610; 85730; 87040; 87449; 87804; 93005; 94150; 94640; 94664; 96365; 96367; J2543; J3370; J7030